=== PATIENT | male | born 1990 | race Caucasian/White ===

== ENCOUNTER 2023-11-23 07:51 | Outpatient (CLI) | payer OTHER, SELFPAY ==
--- NOTE | 2023-11-23 06:00 | DI.RAD_ITS ---
Exam(s) XR PAIN CLINIC LUMBAR SP 2V EXAM: XR PAIN CLINIC LUMBAR SP 2V CLINICAL HISTORY: DX: Lumbar Radiculopathy TECHNIQUE: 2D and realtime digital imaging was performed. Radiologist not present. CONTRAST MATERIAL: None. COMPARISON: No exams were available for comparison FINDINGS: Fluoroscopy was provided for pain management therapy. Please refer to procedure report or details. Radiation Exposure Index: Ka,r=8.44 mGy IMPRESSION: As above. RADIATION DOSE DELIVERED:
--- NOTE | 2023-11-23 07:36 | PDOC.PAIN_ITS ---
Date of service: 11/23/23 Time of Service: 08:30 Pain Managment Procedure Note Procedure Note Procedure Note: Lumbar Interlaminar Epidural Steroid Injection ? Location: L5-S1 ? Pre-procedure Diagnosis: M54.16- Radiculopathy, LUMBAR region ? Post-procedure Diagnosis:? The same as above ? Sedation:? ? None ? Medication: Depo-Medrol 80 mg, Omnipaque 1 mL ? Estimated blood loss:? less than 2 cc ? Surgeon:? Marco Cronin MD COMMENT: ? Procedure Detail:? The procedure and potential risks were explained to the patient and informed written consent was obtained. The patient was escorted to the procedure room and placed in the prone position. Pillows were utilized for proper positioning and comfort. Time out was performed in the procedure room with nursing staff confirming the patient's identity, procedure to be performed, allergies, and any blood thinning or anti-platelet medications.? The patient's neck and upper back was prepped with ChloraPrep and draped in a sterile fashion. Sterile technique was maintained throughout the procedure.? Sterile gloves were used, a face mask was worn, and new single dose vials of all medications were used with the top being swabbed with alcohol and given time to dry prior to withdrawal of medication. ETHYL CHLORIDE was used to anesthetize the skin.Using a 25-gauge 1.5 inch needle, 1% lidocaine was instilled into the superficial soft tissue overlying the targeted area to provide local anesthesia. With fluoroscopic guidance, a 17 -gauge Tuohy needle was advanced toward the interlaminar space of L5-S1. The needle was then advance through the ligamentum flavum and into the posterior epidural space using the loss of resistance technique. Correct needle placement was confirmed through review of the AP and contralateral oblique fluoroscopic views. A 19-gauge arrow catheter was threaded cephalad to the Left Following negative aspiration, one cc of Omnipaque 300 contrast was injected which confirmed good flow throughout the epidural space and no evidence of vasc ular flow or flow into adjacent compartments. Next, following negative aspiration, 1 cc's of normal saline and 80mg of Depo-Medrol was injected. The needle was gently removed. The patient tolerated the procedure well and was transported to the recovery area for observation and discharge instructions. Permanent images saved and recorded. Comment: I discussed with the patient and his other treatments and recommended he discuss getting some as needed meloxicam 15 mg daily and possible gabapentin 100 mg 3 times daily which could be titrated up to 300 mg 3 times daily at as tolerated and needed. If he continues to have chronic low back pain consider repeating radiofrequency ablations that he had at [facility]. Since it has been 7 years he will need new medial branch blocks go down that route. I also encouraged him to use the book treat your own back and do home exercise and core strengthening. Plan:? Follow up prn.
[2023-11-23 07:40] VITALS: BP 122/76; PULSE 104; RESP 18; TEMP 36.5; O2SAT 98
[2023-11-23 08:39] VITALS: O2SAT 97
[2023-11-23 08:40] VITALS: O2SAT 98
[2023-11-23 08:45] VITALS: O2SAT 98
[2023-11-23] MEDS: Omnipaque 240 MG/ML 50 ML BTL IJ (08:56)
[2023-11-23] MEDS: methylPREDNISolone ACETATE 40 MG/ML VIAL IJ (08:57)
[2023-11-23] MEDS: Epidural Tray 1 EACH MC (08:58)
== END 2023-11-23 07:52 | disposition home or self-care (01) ==
LOC: PC 07:52
PROVIDERS: Visit Provider Anesthesiology Pain Medicine
DX: M54.16 Radiculopathy, lumbar region (principal)
CPT/HCPCS: 00123; 62323; 72100; J1010; Q9967

== ENCOUNTER 2023-12-23 01:06 | Outpatient (CLI) | payer OTHER, SELFPAY ==
--- OUTSIDE RECORDS SUMMARY | 2023-12-23 01:09 | XMS_ITS | Encounter Summary ---
Author Organization [facility] Address [address] [place] [address] Care Team Providers Care Spring Coiler Name Role Phone Asif Cabrera MD Primary Care Provider [phone] Reason for Visit * Reason Onset Date Comments Results 02/03/2018 Encounter Details Date Type Department Care Team (Late st Contact Info) Description 02/03/2018 Telephone [facility] Interventional Pain [address] [place] [address] Greg Scott, RN Results Social History Tobacco Use Types Packs/Day Years Used Date Smoking Tobacco: Never Smokeless Tobacco: Never Alcohol Use Standard Drinks/Week Comments No 0 (1 standard drink = 0.6 oz pur e alcohol) Sex and Gender Information Value Date Recorded Sex Assigned at Not on file Gender Identity Not on file Sexual Orientation Not on file documented as of this encounter Functional Status Functional Status Response Date of Assess ment Because of a physical, menta l, or emotional condition, does this person have difficulty doing errands alone such as visiting a doctor's office or shopping? No 08/01/2017 Cognitive Status Response Date of Assessm ent Because of a physical, menta l, or emotional condition, does this person have serious difficulty concentrating, remembering, or making decisions? No 08/01/2017 documented as of this encounter Miscellaneous Notes * Telephone Encounter - Gudelia Brady - 02/07/2018 1526 EST 1st call. LMOM. * Telephone Encounter - Tanisha Vance - 02/07/2018 1455 EST Please schedule patient for two LRFA with Dr Spann/fellow. No authorization is required. Call Ref # [id number] * Telephone Encounter - Gudelia Brady - 02/06/2018 1040 EST Does this need a prior authorization? * Telephone Encounter - Greg Scott RN - 02/03/2018 0924 EST RN spoke with pt and received RFA pain relief numbers. Refer to pt flowsheet. Patient states that he was getting 85% + relief on his Left side post RFA procedure completed 08/01/2017. He says that it is probably starting to wear off at this time. When asked about his cancellation of apopointment that was scheduled in August, patient replied I had the other side set up to goand had to cancel, but I wish I would have called to re-schedule that side - I'm sure that would have been even better. I assured patient I would post this in formation in his chart and would send request to our scheduling department, who would be calling in the near future. Patient stated that he would like to get the other side done BREANA, ad talk to the doctor about having the left side done again. Injection History: 08/01/2017 - RFA L4, L5, ALA on Left 04/01/2017 - LMBB L4, L5, ALA BiLateral 02/04/2017 - LMBB L4, L5, ALA BiLateral 07/01/2016 - Therapeutic lumbar facet L4-L5, L5-ALA BiLateral 03/10/2016 - Therapeutic lumbar facet L4-L5, L5-ALA BiLateral 09/11/2012 - Trigger Point Injections, left paraspinal muscle documented in this encounter Plan of Treatment Not on file documented as of this encounter Visit Diagnoses Not on filedocumented in this encounter Care Teams Spring Coiler Relationship Specialty Start Date End Date Asif Cabrera MD [address] [place] [address] PCP - General 03/15/16 documented as of this encounter
--- OUTSIDE RECORDS SUMMARY | 2023-12-23 01:09 | XMS_ITS | Referral Summary ---
Author Organization [facility] Address [address] [place] [address] Care Team Providers Care Kindergarten Instructional Assistant Name Role Phone Asif Cabrera MD Primary Care Provider [phone] Allergies No known active allergies Medications Medication Sig Dispensed Refills Start Date End Date Status cyclobenzaprine (FLEXERIL) 10 mg tablet Take 10 mg by mouth as needed for Muscle Spasms. Reported on 07/01/2016 Active ibuprofen (MOTRIN) 800 mg tablet Take 800 mg by mouth daily as needed for Pain. Reported on 07/01/2016 Active fluticasone (FLONASE) 50 mcg/actuation nasal spray Instill 100 mcg into both nostrils as needed. Reported on 03/10/2016 Active Active Problems Patient Care Coordination No te Formatting of this note migh t be different from the original. Patient has given permission for the [facility] to verbally discuss the following information with Maryellen Esparza who has the following relationship to the patient: Spouse/Partner: Scheduling/Appt/Billing/Payment Information (does not include clinical information unless specifically indicated with separate option) Medical Information including symptoms, diagnosis, medications, test results and treatment plan (does not include Mental Health unless specifically indicated with separate option) Mental Health (Behavioral,Psychiatric,Chemical Dependency) health information, including my symptoms, diagnosis, medications and treatment plan Permission remains in effect until the patient elects to revoke it. Permission remains in effect until the patient elects to revoke it. Problem Noted Date Diagnosed Date Low back pain radiating to left leg 01/02/2016 Social History Tobacco Use Types Packs/Day Years Used Date Smoking Tobacco: Never Smokeless Tobacco: Never Alcohol Use Standard Drinks/Week Comments No 0 (1 standard drink = 0.6 oz pur e alcohol) Interpersonal Safety Answer Date Record ed Physically Hurt Never 10/29/2019 Verbally Threaten Not on file 10/29/2019 Sex and Gender Information Value Date Recorded Sex Assigned at Not on file Gender Identity Not on file Sexual Orientation Not on file Last Filed Vital Signs Vital Sign Reading Time Taken Comments Blood Pressure 137/78 09/22/2018 1430 EDT Pulse 77 09/22/2018 1430 EDT Temperature 36.5 ??C (97.7 ??F) 09/22/2018 1331 EDT Respiratory Rate 16 04/01/2017 1434 EST Oxygen Saturation - - Inhaled Oxygen Concentration - - Weight 86.2 kg (190 lb) 04/01/2017 1354 EST Height 167.6 cm (5' 6) 04/01/2017 1354 EST Body Mass Index 30.67 04/01/2017 1354 EST Functional Status Functional Status Response Date of [...] concentrating, remembering, or making decisions? No 08/01/2017 Plan of Treatment Not on file Care Teams Kindergarten Instructional Assistant Relationship Specialty Start Date End Date Asif Cabrera MD [address] [place] [address] PCP - General 03/15/16
--- OUTSIDE RECORDS SUMMARY | 2023-12-23 01:09 | XMS_ITS | Encounter Summary ---
Author Organization [facility] Address [address] [place] [address] Care Team Providers Care Governor Assembler Name Role Phone Asif Cabrera MD Primary Care Provider [phone] Reason for Visit * Reason Onset Date Comments Injections 04/05/2016 Encounter Details Date Type Department Care Team (Late st Contact Info) Description 04/05/2016 Telephone [facility] Sp[facility] - [address] [place] [address] Yossi Wakefield PA-C [address] [facility] [phone] Injections Social History Tobacco Use Types Packs/Day Years Used Date Smoking Tobacco: Never Sex and Gender Information Value Date Recorded Sex Assigned at Not on file Gender Identity Not on file Sexual Orientation Not on file documented as of this encounter Functional Status Functional Status Response Date of Assess ment Because of a physical, menta l, or emotional condition, does this person have difficulty doing errands alone such as visiting a doctor's office or shopping? No 03/10/2016 Cognitive Status Response Date of Assessm ent Because of a physical, menta l, or emotional condition, does this person have serious difficulty concentrating, remembering, or making decisions? No 03/10/2016 documented as of this encounter Miscellaneous Notes * Telephone Encounter - Olesya Mello - 04/05/2016 6031 EST Patient called and stated he got great relief from the injection. He doesn't feel pain down his left leg anymore. Overall he feels he got good relief. He will reach out if he needs anything further. documented in this encounter Plan of Treatment Not on file documented as of this encounter Visit Diagnoses Not on filedocumented in this encounter Care Teams Governor Assembler Relationship Specialty Start Date End Date Asif Cabrera MD [address] [place] [address] PCP - General 03/15/16 documented as of this encounter
--- OUTSIDE RECORDS SUMMARY | 2023-12-23 01:09 | XMS_ITS | Encounter Summary ---
Author Organization [facility] Address [address] [place] [address] Care Team Providers Care Administration Specialist Name Role Phone Rere Shah SECURITY TEST ENGINEER Primary Care Provider + Reason for Visit * Reason Comments Back Pain lower back pain, wor se on left * Consult (Routine/Next Available) - Specialty Report Received Specialty Diagnoses / Procedures Referred By Zenon balderas Referred To Contact Pain Medicine Diagnoses Low back pain radiating to left leg Yossi Wakefield PA-C [address] [facility] [place] [address] [facility] [address] [place] [address] Referral ID Status Reason Start Date Expiration Date Visits Requested Visits Authorized [id number] Specialty Report Received Specialty Services Required 01/02/2016 1 1 Encounter Details Date Type Department Care Team (Latest Contact Info) Description 03/10/2016 10:30 EST Office Visit [facility] Interventional Pain [address] [place] [address] [place] [address] [place] [address] Ned Spann MD [address] [facility] [address] [place] [address] Spondylosis of lumbosacral region without myelopathy or radiculopathy (Primary Dx) Discharge Disposition: Auto Discharge Social History Tobacco Use Types Packs/Day Years Used Date Smoking Tobacco: Never Sex and Gender Information Value Date Recorded Sex Assigned at Not on file Gender Identity Not on file Sexual Orientation Not on file documented as of this encounter Last Filed Vital Signs Vital Sign Reading Time Taken Comments Blood Pressure 117/90 03/10/2016 1117 EST Pulse 82 03/10/2016 1117 EST Temperature 36.1 ??C (96.9 ??F) 03/10/2016 1033 EST Respiratory Rate - - Oxygen Saturation - - Inhaled Oxygen Concentration - - Weight 86.2 kg (190 lb) 03/10/2016 1033 EST pt a pproximation Height 167.6 cm (5' 6) 03/10/2016 1033 EST Body Mass Index 30.67 03/10/2016 1033 EST documented in this encounter Functional Status Functional Status Response [...] No 03/10/2016 documented as of this encounter Discharge Diagnoses Diagnosis M47.817 Spondylosis without myelopathy or radiculopathy, lumbosacral region-M47.817[ICD-10-CM] documented in this encounter Patient Instructions * Patient Instructions* Megan Mckeon RN - 03/10/2016 10:30 EST [facility] [address] [address] Patient Instructions You have had your left lumbosacral Facet Steroid Injection. The purpose of this procedure has been to place medication which may help relieve your pain. Steroid may be used to decrease the swelling and nerve irritation which may be causing your pain. The following information should help you over the next few days regarding what you may expect. ??? Please take it easy for the rest of today. ??? DO NOT drive a car for the remainder of the day. ??? If you feel sore where the needle(s) entered for the block or develop a flare-up of pain over the next few days, please use ice on the area. You may leave the ice on for up to 20 minutes at a time. Do not use heat, as this may cause swelling. ??? As long as your primary doctor has indicated no restrictions, you may take a mild pain medicine, such as acetaminophen (Tylenol), ibuprofen (Advil, Nuprin, Motrin IB, etc.) or aspirin, if needed. ??? The steroid injection usually takes a few days to become effective. On average, you may notice some relief in 3 -5 days. However, it may take up to 10 - 14 days to know whether the injection was helpful. ??? If the block causes numbness/weakness, it should wear off within a few hours. ??? If the area that the needle(s) were inserted becomes hot, red, swollen, or increasingly tender,or if you develop a fever (100.5 or greater) or chills along with these symptoms, please call our office immediately. ??? If you develop increasingly severe back pain, continued numbness or weakness of the legs or changes in your bladder or bowel functions, please call our office immediately. Instructions for follow-up If you have any questions about your block, please call Patient Education Topic: Method: Handout and Verbal Taught to: Patient Barriers: None Outcomes: independent and verbalized understanding Signature: Megan Mcgregor RN documented in this encounter Discharge Disposition Disposition Code Departure Means Destination Auto Discharge documented in this encounter Progress Notes * Aparna Newell - 03/10/2016 1030 EST [facility] Rooming Note Does patient have a Hand Nailer? Yes Is patient NPO? (Solids since midnight & liquids for 4 hrs) NA Blood Thinners: Is patient on Blood Thinners? No If yes, taking? If stopped, who authorized stopping? Related comments: Infections: Any recent infections, fever of illnesses? No If on antibiotics, is it 7-10 days past the date of completion of antibiotics? No : (for females of child-bearing age) Is there a chance current ? NA Other: * Ned Spann - 03/10/2016 1030 EST Patient Name: Khris Fisher : 1990 Date of Service: 03/10/2016 Requesting physician: Yossi Wakefield Supervisor Chlorine Liquefaction: Drew Alvardao MD Chocolate Packer: Ned Spann Procedure: Therapeutic lumbar facet joint injections at L4L5, L5S1 Interval History: Patient presents at the request of Yossi Wakefield for evaluation and treatment recommendations of his low back pain. Details of the current complaint are thoroughly described in the consultation notes from Yossi Wakefield's last encounter including pain onset, location, course, workup, therapeutic attempts, and associated functional limitations. The patient reports no recent changes inthe character, quality, or distribution of the pain. There are no recent onset of new associated symptoms such as changes in strength, sensation, or bladder control. All previous medical records including current medications, anticoagulation status, any signs of current infection, and new imaging were reviewed. Injection History: 03/10/2016: lumbar facet joint injection at Left L4L5, L5S1 Allergies: No Known Allergies Review of Systems: Negative for any fever, chills, nausea/vomiting, headaches, chest pain, palpitations, shortness of breath, bladder/bowel incontinence. No easy bruising, bleeding, anti-coagulation or known recent infections. Physical Exam: Vitals: Visit Vitals ??? BP 123/88 ??? Pulse 78 ??? Temp 36.1 ??C (96.9 ??F) (Tympanic) ??? Ht 167.6 cm (66) ??? Wt 86.2 kg (190 lb) Comment: pt approximation ??? BMI 30.67 kg/m2 General: Patient is alert and oriented, no acute distress Lungs: symmetric chest rise, no evidence of labored breathing Skin: clear, warm, dry and intact and no rashes, bruises or petechiae noted Musculoskeletal: Gait: patient ambulates independently with steady gait no obvious scoliosis or abnormal curvature of the spine Lumbar Spine: moderate tenderness elicited upon palpation, pain elicited upon facet loading Lower Extremity: strength 5/5 in all major muscle groups b/l Assessment: 1. Spondylosis of lumbosacral region without myelopathy or radiculopathy Plan: Mr. Khris Fisher is a 25 y.o. male that presents to the pain clinic to undergo lumbar facet injections in regards to his chronic back pain. All risks, benefits, and alternatives were thoroughly explained to Mr. Khris Fisher who verbally communicated understanding of the management plan. Proceed with therapeutic facet joint injections at bilateral L4-L5 and L5-S1 Follow up: with Mr. Wakefield from orthopedics Procedure: The patient gave informed written consent to proceed with this procedure following a detailed discussion of the risks and benefits associated with lumbar facet joint injection including but not limited to infection, bleeding, intrathecal injection, allergic reaction, further exacerbation of current symptoms, neurological injury, and lack of efficacy.. The patient was then placed in the prone position, the skin over the lumbosacral area was prepped with chlorhexadine, and the site was marked anddraped with sterile towels. Strict sterile technique was maintained throughout the procedure. A time out was performed with full staff present to identify the patient, verify the procedure being performed, and review allergies. Flouroscopy was used to identify the lumbar anatomy and align the facet joints. The skin and subcutaneous tissue over the bilateral L4-L5 and L5-S1 facet joints was anesthetized with 2% lidocaine. A 22 guage 3.5 inch spinal needle was inserted under fluoroscopic guidance using coaxial technique into each of the aforementioned facet joints. After negative aspiration, each joint was injected with 0.5 mls 0.5% Bupivacaine and 20 mg Depo-Medrol. There were no paresthesias during needle placement and aspiration was negative at all times. The patient tolerated the procedure well, there were no apparent complications, and he was discharged in stable condition. Written and verbal discharge instructions were reviewed with the patient prior to discharge. Ned Spann MD Attending attestation: I saw and examined the patient with the resident/fellow. I agree with the findings and plan of care documented in the resident's/fellow's note. I was present and participated during the entire procedure. Drew Alvarado MD documented in this encounter Plan of Treatment Not on file documented as of this encounter Visit Diagnoses Diagnosis Spondylosis of lumbosacral region without myelopathy or radiculopathy- Primary Lumbosacral spondylosis without myelopathy documented in this encounter Administered Medications Inactive Administered Medications - up to 3 most recent administrations Medication Order MAR Action Action Date Dose Rate Site bupivacaine (PF) (MARCAINE) 0.5 % (5 mg/mL) injection 5 mg 5 mg (1 mL), intra-articular, NOW X1, 1 dose, On Tue03/10/16 at 1130, Routine Given by Other 03/10/2016 11:12 EST 5 mg methylPREDNISolone ACETATE (DEPO-MEDROL) injection 40 mg 40 mg, intra-articular, NOW X1, 1 dose, On Tue03/10/16 at 1130, Routine Given by Other 03/10/2016 11:13 EST 40 mg documented in this encounter Care Teams Administration Specialist Relationship Specialty Start Date End Date Rere Shah FNP [address] [place] [address] PCP - General 10/08/15 03/14/16 documented as of this encounter
--- OUTSIDE RECORDS SUMMARY | 2023-12-23 01:09 | XMS_ITS | Encounter Summary ---
Author Organization [facility] Address [address] [place] [address] Care Team Providers Care Pulley Worker Name Role Phone Asif Cabrera MD Primary Care Provider [phone] Reason for Visit * Reason Comments Back Pain Encounter Details Date Type Department Care Team (Latest Contact Info) Description 07/01/2016 13:45 EDT Office Visit [facility] Interventional Pain [address] [place], [place] [id number] Unknown, Provider, [place] [address] [place] [address] Ned Spann MD [address] [place] [address] Spondylosis of lumbar region without myelopathy or radiculopathy (Primary Dx) Discharge Disposition: Auto Discharge Social History Tobacco Use Types Packs/Day Years Used Date Smoking Tobacco: Never Sex and Gender Information Value Date Recorded Sex Assigned at Not on file Gender Identity Not on file Sexual Orientation Not on file documented as of this encounter Last Filed Vital Signs Vital Sign Reading Time Taken Comments Blood Pressure 126/69 07/01/2016 1419 EDT Pulse 69 07/01/2016 1419 EDT Temperature 36.4 ??C (97.6 ??F) 07/01/2016 1343 EDT Respiratory Rate - - Oxygen Saturation - - Inhaled Oxygen Concentration - - Weight 83.9 kg (185 lb) 07/01/2016 1343 EDT per pt Height 167.6 cm (5' 6) 07/01/2016 1343 EDT per pt Body Mass Index 29.86 07/01/2016 1343 EDT documented in this encounter Functional Status Functional Status Response Date of Assess ment Because of a physical, menta l, or emotional condition, does this person have difficulty doing errands alone such as visiting a doctor's office or shopping? No 07/01/2016 Cognitive Status Response Date of Assessm ent Because of a physical, menta l, or emotional condition, does this person have serious difficulty concentrating, remembering, or making decisions? No 07/01/2016 documented as of this encounter Discharge Diagnoses Diagnosis M47.816 Spondylosis without myelopathy or radiculopathy, lumbar region-M47.816[ICD-10-CM] documented in this encounter Patient Instructions * Patient Instructions* Aparna Newell - 07/01/2016 13:45 EDT [facility] [address] [address] Patient Instructions You have had your bilateral lumbar Facet Steroid Injection. The purpose of this [...] immediately. ??? If you develop increasingly severe neck/back pain, continued numbness or weakness of the arms/legs or changes in your bladder or bowel functions, please call our office immediately. Instructions for follow-up If you have any questions about your block, please call Patient Education Topic: Method: Handout and Verbal Taught to: Patient Barriers: None Outcomes: independent and verbalized understanding Signature: Aparna Newell documented in this encounter Discharge Disposition Disposition Code Departure Means Destination Auto Discharge documented in this encounter Progress Notes * Vijaya Hull V - 07/01/2016 1343 EDT [facility] Rooming Note Does patient have a Pick Up Driver? Yes Is patient NPO? (Solids since midnight & liquids for 4 hrs) n/a Blood Thinners: Is patient on Blood Thinners? No If yes, taking? If stopped, who authorized stopping? Related comments: Infections: Any recent infections, fever of illnesses? No If on antibiotics, is it 7-10 days past the date of completion of antibiotics? : (for females of child-bearing age) Is there a chance current ? n/a Other: * Drew Alvarado - 07/01/2016 1347 EDT Patient Name: Khris Fisher : 1990 Date of Service: 07/01/2016 Requesting physician: Erik Wakefield Principal Database Developer: Drew Alvarado MD Procedure: Therapeutic lumbar facet joint injections at bilateral L4-L5, L5-S1 Interval History: Patient returns to clinic for repeat facet injections. Details of the current complaint are thoroughly described in the consultation notes from Yossi Wakefield's last encounter including pain onset, location, course, workup, therapeutic attempts, and associated functional limitations. Briefly,he has a long history of low back pain since age 17. The patient reports no recent changes in the character, quality, or distribution of the pain. There are no recent onset of new associated symptomssuch as changes in strength, sensation, or bladder control. All previous medical records including current medications, anticoagulation status, any signs of current infection, and new imaging were rev iewed. Injection History February 2016: lumbar facet joint injection at Left L4L5, L5S1 100% relief for over 3 weeks Allergies: No Known Allergies Review of Systems: Negative for any fever, chills, nausea/vomiting, headaches, chest pain, palpitations, shortness of breath, bladder/bowel incontinence. No easy bruising, bleeding, anti-coagulation or known recent infections. Physical Exam: Vitals: BP 132/86 (BP Cuff Location: Left arm, Patient Position: Sitting, BP Cuff Sizes: Adult, long) Pulse 63 Temp 36.4 ??C (97.6 ??F) (Tympanic) Ht 167.6 cm (66) Comment: per pt Wt 83.9 kg (185 lb) Comment: per pt BMI 29.86 kg/m2 General: Patient is alert and oriented, [...] muscle groups b/l Assessment: 1. Spondylosis of lumbar region without myelopathy or radiculopathy Plan: He had great relief with the last facet injections but did not last very long and felt the right sided was still painful. We will repeat therapeutic facet joint injections at bilateral L4-L5 and L5-S1. If good short term relief, but no long term care social worker relief, then he may be a candidate for radiofrequencyablation. Depending on his insurance, he may need medial branch blocks or the facets may be enough as diagnostic. If no relief at all, the follow up with Sarah Wakefield. Follow up: as needed. Procedure: The patient gave informed written consent [...] anesthetized with 2% lidocaine. A 22 guage 5 inch spinal needle was inserted under fluoroscopic guidance using coaxial technique into each of the aforementioned facet joints. After negative aspiration, each joint was injected with 0.5mls 0.5% Bupivacaine and 20 mg Depo-Medrol. There were no paresthesias during needle placement and aspiration was negative at all times. The patient tolerated the procedure well, there were no apparent complications, and he was discharged in stable condition. Written and verbal discharge instructions were reviewed with the patient prior to discharge. documented in this encounter Plan of Treatment Not on file documented as of this encounter Visit Diagnoses Diagnosis Spondylosis of lumbar region without myelopathy or radiculopathy- Primary Lumbosacral spondylosis without myelopathy documented in this encounter Administered Medications Inactive Administered Medications - up to 3 most recent administrations Medication Order MAR Action Action Date Dose Rate Site bupivacaine (PF) (MARCAINE) 0.5 % (5 mg/mL) injection 15 mg 15 mg (3 mL), intra-articular, NOW X1, 1 dose, On Debra 07/01/16 at 1530, Routine Given by Other 07/01/2016 15:06 EDT 15 mg methylPREDNISolone ACETATE (DEPO-MEDROL) injection 80 mg 80 mg, intra-articular, NOW X1, 1 dose, On Debra 07/01/16 at 1530, Routine Given by Other 07/01/2016 15:07 EDT 80 mg documented in this encounter Care Teams Pulley Worker Relationship Specialty Start Date End Date Asif Cabrera MD [address] [place] [address] PCP - General 03/15/16 documented as of this encounter
--- OUTSIDE RECORDS SUMMARY | 2023-12-23 01:09 | XMS_ITS | Encounter Summary ---
Author Organization [facility] Address [address] [place] [address] Care Team Providers Care French Drawer Name Role Phone Rere Shah Primary Care Provider + Asif Cabrera MD Primary Care Provider [phone] Reason for Visit * Reason Onset Date Comments Results 03/11/2016 Encounter Details Date Type Department Care Team (Late st Contact Info) Description 03/11/2016 Telephone [facility] Interventional Pain [address] [place] [address] Ned Spann MD [address] [facility] [address] [place] [address] Results Social History Tobacco Use Types Packs/Day [...] encounter Miscellaneous Notes * Telephone Encounter - Sheron Mendez RN - 03/11/2016 1422 EST Post Bilateral Lumbar Facet 3 hours at 50% relief. * Telephone Encounter - Tanisha Vance W - 03/11/2016 1342 EST Procedure end time: 1130am Pain relief start time Returned to baseline pain Hours of relief 3 hours Percentage of relief 0-100 (0 = no relief, 100 = total relief) ___50% documented in this encounter Plan of Treatment Not on file documented as of this encounter Visit Diagnoses Not on filedocumented in this encounter Care Teams French Drawer Relationship Specialty Start Date End Date Rere Shah FNP [address] [place], [place] [id number] PCP - General 10/08/15 03/14/16 Asif Cabrera MD [address] [place], [place] [id number] PCP - General 03/15/16 documented as of this encounter
--- OUTSIDE RECORDS SUMMARY | 2023-12-23 01:09 | XMS_ITS | Encounter Summary ---
Author Organization [facility] Address [address] [place] [address] Care Team Providers Care Industrial Sewer Name Role Phone Asif Cabrera MD Primary Care Provider [phone] Reason for Visit * Reason Onset Date Comments Prior Auth, Other (i.e. radiology, etc.) 019 Encounter Details Date Type Department Care Team (Late st Contact Info) Description 09/22/2018 Telephone [facility] Interventional Pain [address] [facility] [place] [address] Ned Spann MD [address] [place] [address] Prior Auth, Other (i.e. radiology, etc.) Social History Tobacco Use Types Packs/Day Years [...] encounter Miscellaneous Notes * Telephone Encounter - Megan Steve - 10/23/2018 1216 EDT Set him up for 12/07/2018 @ 9:30 And 12/21/2018 @ 9:30 LMOM for him to please call us back to confirm these apts or to have them rescheduled if those dates were not going to work for him. * Telephone Encounter - Tanisha Vance - 10/17/2018 1207 EDT Please schedule patient for Michaelle LRFA with Dr Spann. [place] fax no authorization is needed. * Telephone Encounter - Celina Oglesby - 10/16/2018 0926 EDT Faxed PA request to [phone] * Telephone Encounter - Tanisha Vance - 10/11/2018 1558 EDT [place]# [id number] Michaelle LRFA Cpt code [phone] Ned Spann Faxed 10/11/18 4:00pm * Telephone Encounter - Celina Oglesby - 09/25/2018 0914 EDT Waiting for notes * Telephone Encounter - Celina Oglesby - 09/22/2018 1448 EDT Needs [place] for bilateral RFA in a 1 hour appointment. documented in this encounter Plan of Treatment Not on file documented as of this encounter Visit Diagnoses Not on filedocumented in this encounter Care Teams Industrial Sewer Relationship Specialty Start Date End Date Asif Cabrera MD [address] [place] [address] PCP - General 03/15/16 documented as of this encounter
--- OUTSIDE RECORDS SUMMARY | 2023-12-23 01:09 | XMS_ITS | Encounter Summary ---
Author Organization [facility] Address [address] [place] [address] Care Team Providers Care Director Hydrogen Storage Engineering Name Role Phone Asif Cabrera MD Primary Care Provider [phone] Reason for Visit * Reason Onset Date Comments Results 04/04/2017 Encounter Details Date Type Department Care Team (Late st Contact Info) Description 04/04/2017 Telephone [facility] Interventional Pain [address] [place] [address] Ned Spann MD [address] [facility] [address] [place] [address] Results Social History Tobacco Use Types Packs/Day Years Used Date Smoking Tobacco: Never Smokeless Tobacco: Never Sex and Gender Information Value [...] visiting a doctor's office or shopping? No 04/01/2017 Cognitive Status Response Date of Assessm ent Because of a physical, menta l, or emotional condition, does this person have serious difficulty concentrating, remembering, or making decisions? No 04/01/2017 documented as of this encounter Miscellaneous Notes * Telephone Encounter - Gudelia Brady - 06/15/2017 1101 EDT 08/01/17 at 8:15 08/26/17 at 12:45 * Telephone Encounter - Tanisha Vance - 04/18/2017 1005 EST [place] doesn't need authorization for Eduardo LRFA, Reference # [id number] Spann * Telephone Encounter - Gudelia Brady - 04/18/2017 0757 EST Patient already had 2 LMBB. Awaiting PA for LRFA * Telephone Encounter - Tanisha Vance - 04/12/2017 1033 EST Called [place] no PA needed for 2nd MBB. Reference [id number] Please schedule. * Telephone Encounter - Brenna Smith RN - 04/05/2017 0924 EST Injection History: 04/01/2017: medial branch blocks at L3, L4, Sa b/l Had facet injections with limited relief: 100% X 5 hours ?? Post-MBB Pain Relief: Hours of relief: 5 hours Percentage relief: 100% Type of next appointment scheduled: Forward to [facility] PA for 2nd MBB vs RFA pending PA * Telephone Encounter - Danisha Trent - 04/04/2017 1146 EST Injection on 04/01/17 100% relief for 5 hours. documented in this encounter Plan of Treatment Not on file documented as of this encounter Visit Diagnoses Not on filedocumented in this encounter Care Teams Director Hydrogen Storage Engineering Relationship Specialty Start Date End Date Asif Cabrera MD [address] [place] [address] PCP - General 03/15/16 documented as of this encounter
--- OUTSIDE RECORDS SUMMARY | 2023-12-23 01:09 | XMS_ITS | Encounter Summary ---
Author Organization [facility] Address [address] [place] [address] Care Team Providers Care Floral Clerk Name Role Phone Asif Cabrera MD Primary Care Provider [phone] Reason for Visit * Reason Onset Date Comments Pain 04/16/2016 Appointment Related 04/16/2016 Encounter Details Date Type Department Care Team (Late st Contact Info) Description 04/16/2016 Telephone [facility] Interventional Pain [address] [place] [address] Ned Spann MD [address] [place] [address] Pain; Appointment Related Social History Tobacco Use Types Packs/Day Years [...] encounter Miscellaneous Notes * Telephone Encounter - Tanisha Vance - 04/20/2016 1345 EST appt 07/01/16 * Telephone Encounter - Hernandez Wilcox - 04/20/2016 1238 EST No prior auth needed for facet inj please schedule patient thank you * Telephone Encounter - Lissy Oliveira RN - 04/16/2016 1530 EST RN returned call regarding questions on returning pain in back after lifting. No answer LM Pt was seen on 03/10/16 Procedure: Therapeutic lumbar facet joint injections at L4L5, L5S1 Plan per Dr Spann f/u with Yossi Wakefield Pt called back and claims he had 3-4 weeks of 100% pain relief,but recently after lifting developedsame pain back to lower left back which is non radiating. Pt would like to schedule another steroidinjection. Forward info to [facility] * Telephone Encounter - Gudelia Brady - 04/16/2016 1316 EST Patient had last injection on 03/10/16. Patient states he got 100% relief for three weeks. Patient states the injection is slowly wearing off and lifted something and is in pain again. Please call. documented in this encounter Plan of Treatment Not on file documented as of this encounter Visit Diagnoses Not on filedocumented in this encounter Care Teams Floral Clerk Relationship Specialty Start Date End Date Asif Cabrera MD [address] [place] [id number] PCP - General 03/15/16 documented as of this encounter
--- OUTSIDE RECORDS SUMMARY | 2023-12-23 01:09 | XMS_ITS | Encounter Summary ---
Author Organization [facility] Address [address] [place] [address] Care Team Providers Care Anesthetist Name Role Phone Asif Cabrera MD Primary Care Provider [phone] Reason for Visit * Reason Onset Date Comments Results 10/05/2018 Encounter Details Date Type Department Care Team (Late st Contact Info) Description 10/05/[address] [facility] Interventional Pain [address] [place] [address] Melania Colón, [place] Results Social History Tobacco Use Types Packs/Day [...] encounter Miscellaneous Notes * Telephone Encounter - Beckie Colón RN - 10/05/2018 1323 EDT Pt in for left side RFA. Per chart note, he has 80% relief fron the right side RFA completed 04/21/18. documented in this encounter Plan of Treatment Not on file documented as of this encounter Visit Diagnoses Not on filedocumented in this encounter Care Teams Anesthetist Relationship Specialty Start Date End Date Asif Cabrera MD [address] [place] [address] PCP - General 03/15/16 documented as of this encounter
--- OUTSIDE RECORDS SUMMARY | 2023-12-23 01:09 | XMS_ITS | Encounter Summary ---
Author Organization [facility] Address [address] [place] [address] Care Team Providers Care Warehouse General Laborer Name Role Phone Rere Shah MANAGER MED SURG Primary Care Provider + Reason for Referral * Radiology Services (Routine) - Closed Specialty Diagnoses / Procedures Referred By Zenon balderas Referred To Contact Diagnoses Low back pain, unspecified back pain laterality, unspecified chronicity, with sciatica presence unspecified Procedures L SPINE 4 OR MORE VIEWS Yossi Wakefield PA-C [address] [place] [id number] Referral ID Status Reason Start Date Expiration Date Visits Re quested Visits Authorized [id number] Closed 12/02/2015 1 1 Encounter Details Date Type Department Care Team (Late st Contact Info) Description 11/27/2015 Orders Only [facility] Spine Program - [address] [address] Yossi Wakefield PA-C [address] [place] [phone] Low back pain, unspecified back pain laterality, unspecified chronicity, with sciatica presence unspecified (Primary Dx) Social History Tobacco Use Types Packs/Day Years Used Date Smoking Tobacco: Never Assessed Sex and Gender Information Value Date Recorded Sex Assigned at Not on file Gender Identity Not on file Sexual Orientation Not on file documented as of this encounter Plan of Treatment Not on file documented as of this encounter Procedures Procedure Name Priority Date/Time Associated Diagnosis Comments L SPINE 4 OR MORE VIEWS Routine 12/12/2015 14:07 EDT Low back pain, unspecified back pain laterality, unspecified chronicity, with sciatica presence unspecified documented in this encounter Results * L SPINE 4 OR MORE VIEWS (12/12/2015 14:07 EDT) Anatomical Region Laterality Modality Other 12/12/2015 14:0 7 EDT 12/13/2015 20:52 EDT Narrative 12/13/2015 20:52 EDT L SPINE 4 OR MORE VIEWS ??12/12/2015 2:07 PM Clinical History/Comments: M54.5-Low back pain-ICD-10; LOWER BACK PAIN Comparison: Lumbar spine MRI from [facility] on June 06, 2012. Technique: AP and lateral flexion, neutral and extension views of the lumbar spine were obtained. Findings: Significant scoliotic curvature is not appreciated. No tania or retrolisthesis is identified. Vertebral body heights are preserved. Disc space heights are relatively well-maintained. Marked facet osteoarthropathy is not appreciated. Minimal enthesopathy is noted at the iliac crests bilaterally. Procedure Note Vicenta Rizzo MD - 12/13/2015 L SPINE 4 OR MORE VIEWS 12/12/2015 2:07 PM Clinical History/Comments: M54.5-Low back pain-ICD-10; LOWER BACK PAIN Comparison: Lumbar spine MRI from [facility] on June 06, 2012. Technique: AP and lateral flexion, neutral and extension views of the lumbar spine were obtained. Findings: Significant scoliotic curvature is not appreciated. No tania or retrolisthesis is identified. Vertebral body heights are preserved. Disc space heights are relatively well-maintained. Marked facet osteoarthropathy is not appreciated. Minimal enthesopathy is noted at the iliac crests bilaterally. [facility]i [facility] ORDERABLES documented in this encounter Visit Diagnoses Diagnosis Low back pain, unspecified back pain laterality, unspecified chronicity, with sciatica presence unspecified- Primary documented in this encounter Care Teams Warehouse General Laborer Relationship Specialty Start Date End Date Rere Shah FNP [address] [place] [address] PCP - General 10/08/15 03/14/16 documented as of this encounter
--- OUTSIDE RECORDS SUMMARY | 2023-12-23 01:09 | XMS_ITS | Encounter Summary ---
Author Organization [facility] Address [address] [place] [address] Care Team Providers Care Property Clerk Name Role Phone Asif Cabrera MD Primary Care Provider [phone] Reason for Visit * Reason Comments Back Pain Encounter Details Date Type Department Care Team (Latest Contact Info) Description 09/22/2018 13:30 EDT Office Visit [facility] Interventional Pain [address] [place] [address] Ned Spann MD [address] [facility] [address] [place] [address] Spondylosis of lumbar region without myelopathy or [...] (97.7 ??F) 09/22/2018 1331 EDT Respiratory Rate - - Oxygen Saturation - - Inhaled Oxygen Concentration - - Weight - - Height - - Body Mass Index - - documented in this encounter Functional Status Functional [...] No 08/01/2017 documented as of this encounter Discharge Diagnoses Diagnosis M47.816 Spondylosis without myelopathy or radiculopathy, lumbar region-M47.816[ICD-10-CM] documented in this encounter Patient Instructions * Patient Instructions* Lyn Vazquez RN - 09/22/2018 13:30 EDT [facility] [address] [address] Patient Instructions You have had your Radiofrequency Ablation. The purpose of this procedure is to relieve or reduce your pain. The following information should help you over the next few days/weeks regarding what you may expect. ??? Please take it easy for the rest of today. ??? DO NOT drive a car for the remainder of the day. ??? If you feel sore where the needle(s) entered for the block, please use ice on the area. You mayleave the ice on for up to 20 minutes at a time. Do not use heat, as this can increase swelling. ??? As long as your primary doctor has indicated no restrictions, you may take a mild pain medicine, such as acetaminophen (Tylenol), ibuprofen (Advil, Nuprin, Motrin IB, etc.) or aspirin, if needed. ??? Please keep track of how your pain feels over the next few weeks. On average patients start to notice relief at 3-4 weeks but this can take up to 8-10 weeks to know whether this procedure was helpful. ??? If the block causes numbness (asleep) feeling or weakness, that will wear off within several hours. ??? If the area that the needle(s) were inserted becomes hot, red, swollen, or increasingly tender,or if you develop a fever (100.5 or greater) or chills along with these symptoms, please call our office immediately. ??? If you develop increasingly severe back pain, continued numbness or weakness of the legs or changes in your bladder or bowel functions, please call our office at once. Instructions for follow-up: One of our nurses will be phoning you at 8 weeks, 6 months and 1 year to see if you are getting relief. We document this in your medical record. In order to have this procedure repeated and approved by your insurance, we have to supply them with your results (% & months of relief). If at any time this wears off, please call us. We will take you off the phone call schedule and determine with you if this procedure is worth repeating at any time after 6 months or if you should come in for a follow up to discuss options. If you have any questions about your block, please call Patient Education Topic: Method: Handout and Verbal Taught to: Patient Barriers: None Outcomes: independent and verbalized understanding LYN VAZQUEZ RN documented in this encounter Discharge Disposition Disposition Code Departure Means Destination Auto Discharge documented in this encounter Progress Notes * Vijaya Hull V - 09/22/2018 1330 EDT [facility] Rooming Note Does patient have a Drupal Developer? Yes Is patient NPO? (Solids since midnight & liquids for 4 hrs) N/a Blood Thinners: Is patient on Blood Thinners? No If yes, taking? If stopped, who authorized stopping? Related comments: Infections: Any recent infections, fever of illnesses? No If on antibiotics, is it 7-10 days past the date of completion of antibiotics? : (for females of child-bearing age) Is there a chance current ? Do you have any type of implanted device? No Other: * Ned Spann - 09/22/2018 1330 EDT Patient Name: Khris Fisher : 1990 Date of Service: 09/22/2018 Requesting physician: Asif Cabrera via Erik Wakefield On Call: Ned Spann MD Women'S Soccer Coach: None Procedure: Therapeutic lumbar radiofrequency ablation at L4, L5, sa on left Interval History: Patient returns at the request of Asif Cabrera for continued evaluation and treatment recommendations of the patient's pain. Khris Fisher primarily localizes the pain at his low back radiating to buttocks and thighs. He describes the pain as sharp in character. Patient currently denies any progressive weakness, unexplainedfever, trauma or unexplained weight loss. Patient has undergone 2 sets of diagnostic injections that offered 100% pain relief X5 hours. Details of the current complaint are thoroughly described in the consultation notes from Erik Wakefield' encounters including pain onset, location, course, workup, therapeutic attempts, and associated functional limitations. The patient reports no recent changesin the character, quality, or distribution of the pain. There are no recent onset of new associatedsymptoms such as changes in strength, sensation, or bladder control. All previous medical records including current medications, anticoagulation status, any signs of current infection, and new imaging were reviewed. Injection History: 04/15: right sided RFA: 80% relief ongoing 08/12: left sided RFA: 80% relief for 6 months Had 2 sets of lumbar facet injections before moving on to diagnostic mbb and now RFA Allergies: No Known Allergies Review of Systems: Negative for any fever, chills, nausea/vomiting, headaches, chest pain, palpitations, shortness of breath, bladder/bowel incontinence. No easy bruising, bleeding, anti-coagulation or known recent infections. Physical Exam: Vitals: BP 127/76 Pulse 70 Temp 36.5 ??C (97.7 ??F) (Tympanic) General: Patient is alert and oriented, no acute distress Lungs: symmetric chest rise, no evidence of labored breathing Skin: clear, warm, dry and intact and no rashes, bruises or petechiae noted Musculoskeletal: Gait: patient ambulates independently, steady gait no obvious scoliosis or abnormal curvature of the spine Lumbar Spine: tenderness elicited upon palpation, pain elicited upon facet loading Lower Extremity: strength 5/5 in all armando muscle groups b/l Assessment: 1. Spondylosis of lumbar region without myelopathy or radiculopathy Plan: Mr. Khris Fisher is a 28 y.o. male that presents to the pain clinic to undergo lumbar radiofrequency ablation in regards to his chronic back pain. All risks, benefits, and alternatives were thoroughly explained to Mr. Khris Fisher who verbally communicated understanding of the management plan. Proceed with radiofrequency ablation at L4, L5, Sa on left Follow up: I expect this will help again for about 6 months. I want him to be scheduled in 6 months to do bothsides at same time. Procedure: The patient gave informed written consent to proceed with this procedure following a detailed discussion of the risks and benefits associated with lumbar radiofrequency ablation including but not limited to infection, bleeding, intrathecal injection, allergic reaction, further exacerbation of current symptoms, neurological injury, and lack of efficacy. The patient was then placed in prone position, the skin over the lumbosacral area was prepped with chlorhexadine, and the site was marked and draped with sterile towels. Strict sterile technique was maintained throughout the procedure. A timeout was performed with full staff present to identify the patient, verify the procedure being performed, and review allergies Flouroscopy was used to identify the appropriate lumbar anatomy. The skin and subcutaneous tissue were anesthetized with 2% lidocaine. A 10 cm RFA cannula with 10 mm active tip was inserted under fluoroscopic guidance to contact the junction of the superior articulating process and transverse process at the aforementioned levels. Once periostium was contacted, the RFA cannula were advance slightly anterior and cephalad to place the active tips parallel to the targeted nerves. Final needle position was confirmed with biplanar fluoroscopy. Sensory testing was performed at 50 Hz at each location. Motor testing was performed using 2 Hz and was negative for lower extremity muscle contraction at all levels up to 2.5 volts. The testing results are documented in the table below. After proper sensory and motor testing was completed, each site was anesthetized with one ml lidocaine 2%. Thermal radiofrequency ablation was then performed at 80 degrees Celsius for 150 seconds. After treatment was completed, 1 ml of 0.5% bupivacaine was injected at each site and the needles were withdrawn. 3 RFA cannula were used for this procedure. There was no paresthesia during needle placement and aspiration was negative at all times. The patient tolerated the procedure well and there were no apparent complications. Written and verbal discharge instructions were reviewed with the patient prior to discharge. RFA parameters: Please see additional documentation in this encounter. Ned Spann MD * Lyn Vazquez RN - 09/22/2018 1088 EDT Thermal RFA parameters: Temp (Celcius): 80 Time (Seconds): 150 xxxxxxxxxxxxxxxxxx xxxxxxxxxxxxxxxxxxxx xxxxxxxxxxxxxxxxxxxx Location Sensory: 50 Hz Motor: 2 Hz Lt Sacral Ala 0.82 Negative xxxxxxxxxxxxxxxxxxx xxxxxxxxxxxxxxxxxxxxx xxxxxxxxxxxxxxxxxxxxx Lt L5 0.42 Negative xxxxxxxxxxxxxxxxxxx xxxxxxxxxxxxxxxxxxxxx xxxxxxxxxxxxxxxxxxxxx Lt L4 0.35 Negative xxxxxxxxxxxxxxxxxxx xxxxxxxxxxxxxxxxxxxxx xxxxxxxxxxxxxxxxxxxxx documented in this encounter Plan of Treatment [...] (PF) (MARCAINE) 0.5 % (5 mg/mL) injection 25 mg 25 mg (5 mL), cruzito-neural, NOW X1, 1 dose, On Tue09/22/18 at 1445, Routine Given by Other 09/22/2018 14:25 EDT 25 mg documented in this encounter Orders Medications Ordered That Angel ht Not Have Been Administered Count Last Ordered Date First Ordered Date bupivacaine (PF) (MARCAINE) 0.5 % (5 mg/mL) injection 25 mg 1 09/22/2018 documented in this encounter Care Teams Property Clerk Relationship Specialty Start Date End Date Asif Cabrera MD [address] [place] [address] PCP - General 03/15/16 documented as of this encounter
--- OUTSIDE RECORDS SUMMARY | 2023-12-23 01:09 | XMS_ITS | Encounter Summary ---
Author Organization [facility] Address [address] [place] [address] Care Team Providers Care Fashion Consultant Sales Name Role Phone Rere Shah Primary Care Provider + Encounter Details Date Type Department Care Team (Late st Contact Info) Description 11/27/2015 Results Only Imaging [facility] - [address] [place], [place] [id number] Yossi Wakefield PA-C [address] [facility] [place] [address] Social History Tobacco Use Types Packs/Day Years Used Date Smoking Tobacco: Never Assessed Sex and Gender Information Value Date Recorded Sex Assigned at Not on file Gender Identity Not on file Sexual Orientation Not on file documented as of this encounter Plan of Treatment Pending Results Name Type Priority Associated Diagnoses Date /Time OUTSIDE IMAGES - MR NEURO Imaging 11/27/2015 11:15 EDT OUTSIDE IMAGES - OTHER NEURO Imaging 11/27/2015 11:15 EDT documented as of this encounter Visit Diagnoses Not on filedocumented in this encounter Care Teams Fashion Consultant Sales Relationship Specialty Start Date End Date Rere Shah FNP [address] [place] [address] PCP - General 10/08/15 03/14/16 documented as of this encounter
--- OUTSIDE RECORDS SUMMARY | 2023-12-23 01:09 | XMS_ITS | Encounter Summary ---
Author Organization [facility] Address [address] [place] [address] Care Team Providers Care Sausage Wrapper Name Role Phone Asif Cabrera MD Primary Care Provider [phone] Reason for Visit * Reason Comments Back Pain Encounter Details Date Type Department Care Team (Latest Contact Info) Description 08/01/2017 8:15 EDT Office Visit [facility] Interventional Pain [address] [place] [address] Ned Spann MD [address] [facility] [address] [place] [address] Spondylosis of lumbar region without [...] Sign Reading Time Taken Comments Blood Pressure 112/74 08/01/2017 0928 EDT Pulse 76 08/01/2017 0928 EDT Temperature 36.3 ??C (97.4 ??F) 08/01/2017 0823 EDT Respiratory Rate - - Oxygen Saturation [...] * Patient Instructions* Megan Mckeon RN - 08/01/2017 8:15 EDT [facility] [address] [address] Patient Instructions You have had your Radiofrequency [...] for a follow up to discuss options. Patient Education Topic: Method: Handout and Verbal Taught to: Patient Barriers: None Outcomes: independent and verbalized understanding Signature: Megan Mcgregor RN documented in this encounter Discharge Disposition Disposition Code Departure Means Destination Auto Discharge documented in this encounter Progress Notes * Lavern Matos - 08/01/2017 0815 EDT [facility] Rooming Note Does patient have a Cephalometric Technician? YES Is patient NPO? (Solids since midnight & liquids for 4 hrs) NO Blood Thinners: Is patient on Blood Thinners? NO If yes, taking? If stopped, who authorized stopping? Related comments: Infections: Any recent infections, fever of illnesses? NO If on antibiotics, is it 7-10 days past the date of completion of antibiotics? NO : (for females of child-bearing age) Is there a chance current ? Do you have any type of implanted device? Other: * Megan Mckeon RN - 08/01/2017 0815 EDT Thermal RFA parameters: Temp (Celcius): 80 Time (Seconds): 150 xxxxxxxxxxxxxxxxxx xxxxxxxxxxxxxxxxxxxx xxxxxxxxxxxxxxxxxxxx Location Sensory: 50 Hz Motor: 2 Hz Lt Sacral Ala 0.16 Negative xxxxxxxxxxxxxxxxxxx xxxxxxxxxxxxxxxxxxxxx xxxxxxxxxxxxxxxxxxxxx Lt L5 0.10 Negative xxxxxxxxxxxxxxxxxxx xxxxxxxxxxxxxxxxxxxxx xxxxxxxxxxxxxxxxxxxxx Lt L4 0.18 Negative xxxxxxxxxxxxxxxxxxx xxxxxxxxxxxxxxxxxxxxx xxxxxxxxxxxxxxxxxxxxx * Ned Spann - 08/01/2017 0815 EDT Patient Name: Khris Fisher : 1990 Date of Service: 08/01/2017 Requesting physician: Asif Cabrera via Erik Wakefield Cardiac Cath Technologist: Ned Spann MD Cell Changer: None Procedure: Therapeutic lumbar radiofrequency ablation at L$, L5, sa on left Interval History: Patient returns at the request of Asif Cbarera for continued evaluation and treatment recommendations of [...] in the consultation notes from Erik Wakefield' last encounter including pain onset, location, course, workup, therapeutic attempts, and associated functional limitations. The patient reports no recent changes in the character, quality, or distribution of the pain. There are no recent onset of new associated symptoms such as changes in strength, sensation, or bladder control. All previous medical records including current medications, anticoagulation status, any signs of current infection, and new imaging were reviewed. Injection History: Had 2 sets of lumbar facet injections before moving on to diagnostic mbb and now RFA Allergies: No Known Allergies Review of Systems: Negative for any fever, chills, nausea/vomiting, headaches, chest pain, palpitations, shortness of breath, bladder/bowel incontinence. No easy bruising, bleeding, anti-coagulation or known recent infections. Physical Exam: Vitals: BP 123/80 Pulse 87 Temp 36.3 ??C (97.4 ??F) (Tympanic) General: Patient is alert and [...] radiculopathy Plan: Mr. Khris Fisher is a 27 y.o. male that presents to the pain clinic to undergo lumbar radiofrequency ablation in regards to his chronic back pain. All risks, benefits, and alternatives were thoroughly explained to Mr. Khris Fisher who verbally communicated understanding of the management plan. Proceed with radiofrequency ablation at L4, L5, Sa on left Follow up: We will follow up with the patient in 6 weeks by phone to assess the response to the RF ablation that was done today. Procedure: The patient gave informed written consent [...] documentation in this encounter. Ned Spann MD documented in this encounter Plan of [...] injection 15 mg 15 mg (3 mL), cruzito-neural, NOW X1, 1 dose, On Tue08/01/17 at 0930, Routine Given by Other 08/01/2017 9:27 EDT 15 mg documented in this encounter Orders Medications Ordered That Angel ht Not Have Been Administered Count Last Ordered Date First Ordered Date bupivacaine (PF) (MARCAINE) 0.5 % (5 mg/mL) injection 15 mg 1 08/01/2017 documented in this encounter Care Teams Sausage Wrapper Relationship Specialty Start Date End Date Asif Cabrera MD [address] [place] [address] PCP - General 03/15/16 documented as of this encounter
--- OUTSIDE RECORDS SUMMARY | 2023-12-23 01:09 | XMS_ITS | Encounter Summary ---
Author Organization [facility] Address [address] [place] [address] Care Team Providers Care Anesthesiology Faculty Name Role Phone Rere Shah RADHA Primary Care Provider + Reason for Referral * Consult (Routine/Next Available) - Specialty Report Received Specialty Diagnoses / Procedures Referred By Zenon balderas Referred To Contact Pain Medicine Diagnoses Low back pain radiating to left leg Yossi Wakefield PA-C [address] [place] [address] [facility] [address] [place] [address] Referral ID Status Reason Start Date Expiration Date Visits Requested Visits Authorized [id number] Specialty Report Received Specialty Services Required 01/02/2016 1 1 Question Answer Reason for Request: Low back pain radiating to left leg Has the patient had 6 weeks of conservative treatment such as physicial therapy or NSAIDS? Yes Associated Notes: PT & CHIRO & NSAIDS Comments Recommend LEFT sided L4-L5/L5-S1 facet injections Reason for Visit * Reason Comments Back Pain low back pain Encounter Details Date Type Department Care Team (Late st Contact Info) Description 01/02/2016 15:15 EDT Office Visit [facility] - [address] [address] Yossi Wakefield PA-C [address] [place] [address] Low back pain radiating to left leg (Primary Dx) Social History Tobacco Use Types Packs/Day Years Used Date Smoking Tobacco: Never Sex and Gender Information Value Date Recorded Sex Assigned at Not on file Gender Identity Not on file Sexual Orientation Not on file documented as of this encounter Progress Notes * Yossi Wakefield PA - 01/02/2016 1515 EDT Khris Fisher is being seen as a consultation from Dr. Shah. Chief Complaint Patient presents with ??? Back Pain low back pain The encounter diagnosis was Low back pain radiating to left leg. HPI Mr. Fisher is a 25 y.o. pleasant male who returns to the clinic today, 01/02/2016, for FU post MRI (01/02/2016). The patient reports NO significant improvement since his last visit. Mr. Fisher presented to the clinic for the fist time in 12/12/2015, with 100% LBP, left sided radiating to left buttock and proximal thigh ONSET: Gradual about 15 years ago. Has worsened and over the last 3 years symptoms wax and wane, but they are present everyday. CONSERVATIVE TX: He has tried PT & CHIRO, which did not help significantly. H/o injections: left SI joint injection without relief. ALLEVIATING FACTORS: lying down. AGGRAVATING FACTORS: bending forward, extending his back, sitting. PAIN: 6/10. SOCIAL: He has never smoked. He is currently working. HPI Patient Active Problem List Diagnosis ??? Low back pain radiating to left leg No past medical history on file. No past surgical history on file. Social History Substance Use Topics ??? Smoking status: Never Smoker ??? Smokeless tobacco: Not on file ??? Alcohol use Not on file No family history on file. Current Outpatient Prescriptions Medication Sig Dispense Refill ??? cyclobenzaprine (FLEXERIL) 10 mg tablet Take 10 mg by mouth as needed for Muscle Spasms. ??? fluticasone (FLONASE) 50 mcg/actuation nasal spray Instill 100 mcg into both nostrils as needed. ??? ibuprofen (MOTRIN) 800 mg tablet Take 800 mg by mouth daily as needed for Pain. No current facility-administered medications for this visit. No Known Allergies Review of Systems Physical Exam Ortho Exam Neurologic Exam Today, 01/02/2016, I independently reviewed the following: MRI from prior work up in December 2015: L1-2, L2-3, and L3-4 there is no focal herniation, central canal stenosis, or foraminal compromise. L4-5 disc bulge is present without focal herniation or central canal stenosis and there is no foraminal impingement. L5-S1 there is a mild disc bulge without focal herniation or central canal stenosis and there is noforaminal impingement. Plain radiographs (AP/Lat/Flex/Ex): 1. Five (5) non-rib bearing lumbar vertebrae 2. Facet arthropathy of the lower lumbar spine 3. Disc height reduction at L5-S1 conistent with degenerative disc disease 4. No fractures or pars defects noted ?? Assessment 25 y.o. male with left-sided LBP radiating to the left buttock and proximal S1 dermatome of his thigh not concordant with MRI; referred facetogenic/discogenic pain is plausible. He has agreed to the following plan. Other Orders Placed This Visit Procedures ??? Amb Pain Procedure Plan: 1. Order L4-L5/L5-S1 LEFT-sided facet injections 2. Continue activity as tolerated 3. Phone FU post facet injections 4. If no relief from facet injections, consider L5-S1 DEMETRIS CC: Dr. Pablo Bravo was the attending physician available in the clinic today if needed. A consultation was not required. documented in this encounter Plan of Treatment Scheduled Referrals Name Type Priority Associated Diagnoses Orde r Schedule AMB PAIN PROCEDURE Outpatient Referral Routine Low back pain radiating to left leg Ordered: 01/02/2016 documented as of this encounter Visit Diagnoses Diagnosis Low back pain radiating to left leg- Primary Lumbago documented in this encounter Care Teams Anesthesiology Faculty Relationship Specialty Start Date End Date Rere Shah FNP [address] [place] [address] PCP - General 10/08/15 03/14/16 documented as of this encounter
--- OUTSIDE RECORDS SUMMARY | 2023-12-23 01:09 | XMS_ITS | Encounter Summary ---
Author Organization [facility] Address [address] [place] [address] Care Team Providers Care Para Machine Operator Name Role Phone Asif Cabrera MD Primary Care Provider [phone] Reason for Visit * Reason Comments Back Pain Encounter Details Date Type Department Care Team (Latest Contact Info) Description 02/04/2017 10:00 EST Office Visit [facility] Interventional Pain [address] [place] [address] Ned Spann MD [address] [facility] [address] [place] [address] Spondylosis of lumbar region without [...] Sign Reading Time Taken Comments Blood Pressure 136/63 02/04/2017 1109 EST Pulse 82 02/04/2017 1109 EST Temperature 35.9 ??C (96.6 ??F) 02/04/2017 1011 EST Respiratory Rate - - Oxygen Saturation - - Inhaled Oxygen Concentration - - Weight 81.6 kg (180 lb) 02/04/2017 1011 EST Height 167.6 cm (5' 6) 02/04/2017 1011 EST Body Mass Index 29.05 02/04/2017 1011 EST documented in this encounter Functional Status Functional Status Response Date of Assess ment Because of a physical, menta l, or emotional condition, does this person have difficulty doing errands alone such as visiting a doctor's office or shopping? No 02/04/2017 Cognitive Status Response Date of Assessm ent Because of a physical, menta l, or emotional condition, does this person have serious difficulty concentrating, remembering, or making decisions? No 02/04/2017 documented as of this encounter Discharge Diagnoses Diagnosis M47.816 Spondylosis without myelopathy or radiculopathy, lumbar region-M47.816[ICD-10-CM] documented in this encounter Patient Instructions * Patient Instructions* Jerrica Chung RN - 02/04/2017 10:00 EST [facility] [address] [address] Medial Branch Block Patient Instructions You underwent a procedure called Bilateral Lumbar MEDIAL BRANCH BLOCK today. This is a diagnostic test to determine if this is the cause of your pain. Your results from today???s injection will help us guide further care for you. Please call us back tomorrow with your hours and % of relief. Following this procedure, continue to be active for the Remainder of the day and maintain your usual daily routine. Do not drive or operate any motorized vehicles or equipment. Keep track of how long you received relief as well as what percentage of pain relief immediately following the procedure. It can take 30-60 minutes for the long acting local anesthetic to start to work. Separate the needle discomfort, pressure and tightness caused by this procedure from your regular pain. This diagnostic procedure is ONLY intended to last for a number of hours, not days or weeks.Please contact our office the day after your Medial Branch Block with your results. PROCEDURE END TIME: (nurse) 11:15 PAIN RELIEF START TIME: PAIN RELIEF END TIME: HOURS OF RELIEF PERCENTAGE OF RELIEF (0-100%) ADDITIONAL MEDIAL BRANCH BLOCK INSTRUCTIONS Do not operate a automobile or other motorized equipment for the remainder of the day today. You may resume your normal activities or rest tomorrow. If you feel sore where the needles were placed, please use ice to the area for up to 20 minutes at a time. Do not use heat, as this may cause swelling. Once your pain has returned you may resume anti-inflammatory medication (NSAIDs: ibuprofen, Advil, Motrin, alive). NSAIDs and ice will help with any increase in pain you may have after your block has worn off. If you have a fever or any redness or other signs of infection at the injection sites after today, please contact us immediately. Patient Education Topic: Method: Handout and Verbal Taught to: Patient Barriers: None Outcomes: independent and verbalized understanding Jerrica Chung RN documented in this encounter Discharge Disposition Disposition Code Departure Means Destination Auto Discharge documented in this encounter Progress Notes * Vijaya [place] V - 02/04/2017 1000 EST [facility] Rooming Note Does patient have a Recreation Supervisor? Yes Is patient NPO? (Solids since midnight [...] age) Is there a chance current ? N/a Other: * Ned Spann - 02/04/2017 1000 EST Patient Name: Khris Fisher : 1990 Date of Service: 02/04/17 Requesting physician: Yossi Wakefield Metalworking Instructor: Ned Spann MD Television Engineer: none Procedure: Diagnostic medial branch blocks at lumbar L4, L5, Sa b/l Interval History: Patient returns at the initial request of Yossi Wakefield for continued evaluation and treatment recommendations of the patient's axial back pain. Khris Fisher has been seen here and at orthopedics and his symptoms are well described in previous notes. Patient currently denies any progressive weakness, unexplained fever, trauma or unexplained weight loss. Details of the current complaint are thoroughly described in the consultation notes fromYossi Wakefield's last encounter including pain onset, location, [...] and new imaging were reviewed. Injection History: 02/07/2017: medial branch blocks at L3, L4, Sa b/l Had facet injections with limited relief Allergies: No Known Allergies Review of Systems: Negative for any fever, chills, nausea/vomiting, headaches, chest pain, palpitations, shortness of breath, bladder/bowel incontinence. No easy bruising, bleeding, anti-coagulation or known recent infections. Physical Exam: Vitals: BP 136/63 (BP Cuff Location: Left arm, Patient Position: Prone, BP Cuff Sizes: Adult, long) Pulse 82 Temp 35.9 ??C (96.6 ??F) (Tympanic) Ht 167.6 cm (66) Wt 81.6 kg (180 lb) BMI 29.05 kg/m2 General: Patient is alert and oriented, no acute distress Lungs: symmetric chest rise, no evidence of labored breathing Skin: clear, warm, dry and intact and no rashes, bruises or petechiae noted Musculoskeletal: Gait: patient ambulates independently, steady gait no obvious scoliosis or abnormal curvature of the spine Lumbar Spine: moderate tenderness elicited upon palpation, pain exacerbated with rotational torque Lower Extremity: strength 5/5 in all major muscle groups b/l, sensory bilaterally equal to light touch, negative straight leg test Assessment: 1. Spondylosis of lumbar region without myelopathy or radiculopathy Plan: Mr. Khris Fisher is a 26 y.o. male that presents to the pain clinic to undergo diagnostic medial branch blocks in regards to his chronic back pain. All risks, benefits, and alternatives were thoroughly explained to Mr. Khris Fisher who verbally communicated understanding of the management plan. Proceed with diagnostic medial branch blocks at L4, L5, sa b/l Follow up: will call tomorrow with results Procedure: The patient gave informed written consent to proceed with this procedure following a detailed discussion of the risks and benefits associated with lumbar medial branch blocks including but not limited to infection, bleeding, headache, further exacerbation of current symptoms, neurological injury, and lack of efficacy. The patient was then placed in prone position, the skin over the lumbar region was prepped with chlorhexadine, and the site was marked and draped with sterile towels. Strict sterile technique was maintained throughout the procedure. A time out was performed with full staff present to identify the patient, verify the procedure being performed, and review allergies Flouroscopy was used to identify the appropriate lumbar anatomy. The skin and subcutaneous tissue were anesthetized with 2% lidocaine. A 22 guage 3.5 inch spinal needle was inserted under fluoroscopic guidance to contact the junction of the superior articulating process and transverse process at the Lt L4, Rt L4, Lt L5, Rt L5, Lt Sacral Ala and Rt Sacral Ala levels. Final needle position was confirmed with fluoroscopy. Aspiration was negative for blood or CSF. Next, 0.3 ml of 0.5% bupivacaine was injected at each site, the needles were restyletted and withdrawn. There was no paresthesia during needle placement and aspiration was negative at all times. The patient tolerated the procedure well and there were no apparent complications. Written and verbal discharge instructions were reviewed with the patient prior to discharge. They will report the results of today???s diagnostic injection via telephone within 24 hours Pain Score (from Vitals) 02/04/2017 02/04/2017 Initial score 6 - Final score 6 0 Location BACK BACK Comment pre post Ned Spann MD documented in this encounter [...] (PF) (MARCAINE) 0.5 % (5 mg/mL) injection 9 mg 9 mg (1.8 mL), cruzito-neural, NOW X1, 1 dose, On Tue02/04/17 at 1115, Routine Given by Other 02/04/2017 10:58 EST 9 mg documented in this encounter Orders Medications Ordered That Angel ht Not Have Been Administered Count Last Ordered Date First Ordered Date bupivacaine (PF) (MARCAINE) 0.5 % (5 mg/mL) injection 9 mg 1 02/04/2017 documented in this encounter Care Teams Para Machine Operator Relationship Specialty Start Date End Date Asif Cabrera MD [address] [place] [address] PCP - General 03/15/16 documented as of this encounter
--- OUTSIDE RECORDS SUMMARY | 2023-12-23 01:09 | XMS_ITS | Encounter Summary ---
Author Organization [facility] Address [address] [place] [address] Care Team Providers Care Speed Belt Sander Tender Name Role Phone Rere Shah Primary Care Provider + Reason for Visit * Reason Onset Date Comments Diagnostic Imaging Report 12/16/2015 Encounter Details Date Type Department Care Team (Late st Contact Info) Description 12/16/2015 Telephone [facility] Spine Program - [address] [address] Yossi Wakefield PA-C [address] [facility] [place] [address] Diagnostic Imaging Report Social History Tobacco Use Types Packs/Day Years Used Date Smoking Tobacco: Never Sex and Gender Information Value Date Recorded Sex Assigned at Not on file Gender Identity Not on file Sexual Orientation Not on file documented as of this encounter Miscellaneous Notes * Telephone Encounter - Olesya Mello - 12/16/2015 0919 EDT Called patient with date and time of MRI and f/u appointment's. Provided appropriate phone numbers to reschedule if necessary. documented in this encounter Plan of Treatment Not on file documented as of this encounter Visit Diagnoses Not on filedocumented in this encounter Care Teams Speed Belt Sander Tender Relationship Specialty Start Date End Date Rere Shah FNP [address] [place], [place] [address] PCP - General 10/08/15 03/14/16 documented as of this encounter
--- OUTSIDE RECORDS SUMMARY | 2023-12-23 01:09 | XMS_ITS | Encounter Summary ---
Author Organization [facility] Address [address] [place] [address] Care Team Providers Care Director Of Quality Control Name Role Phone Asif Cabrera MD Primary Care Provider [phone] Reason for Visit * Reason Onset Date Comments Results 04/27/2019 Encounter Details Date Type Department Care Team (Late st Contact Info) Description 04/27/2019 Telephone [facility] Interventional Pain [address] [place] [address] Melania Colón, TRISTON Results Social History Tobacco [...] encounter Miscellaneous Notes * Telephone Encounter - Melania Colón RN - 04/27/2019 1422 EST Left message for patient to contact the clinic to discuss how he has been doing after his bilat. Ablations. Housemate states he has wanted to call the clinic to schedule an appointment and she will pass on the message. documented in this encounter Plan of Treatment Not on file documented as of this encounter Visit Diagnoses Not on filedocumented in this encounter Care Teams Director Of Quality Control Relationship Specialty Start Date End Date Asif Cabrera MD [address] [place] [address] PCP - General 03/15/16 documented as of this encounter
--- OUTSIDE RECORDS SUMMARY | 2023-12-23 01:09 | XMS_ITS | Encounter Summary ---
Author Organization [facility] Address [address] [place] [address] Care Team Providers Care Principal Consulting Engineer Name Role Phone Asif Cabrera MD Primary Care Provider [phone] Reason for Visit * Reason Onset Date Comments Follow-up 03/30/2016 Encounter Details Date Type Department Care Team (Late st Contact Info) Description 03/30/2016 Telephone [facility] Spine Program - [address] [id number] Yossi Wakefield PA-C [address] [place], [place] [address]ey [facility] [place] [address] Follow-up Social History Tobacco Use Types Packs/Day Years [...] encounter Miscellaneous Notes * Telephone Encounter - Edu Campa Brandi - 03/30/2016 1352 EST patient called to report in on the results of his injection. He however left no info regarding it and when I called him back he was unavailable so I left a message for him to call our office and if he got voicemail to leave a detailed message the results of the injection. documented in this encounter Plan of Treatment Not on file documented as of this encounter Visit Diagnoses Not on filedocumented in this encounter Care Teams Principal Consulting Engineer Relationship Specialty Start Date End Date Asif Cabrera MD [address] [place] [address] PCP - General 03/15/16 documented as of this encounter
--- OUTSIDE RECORDS SUMMARY | 2023-12-23 01:09 | XMS_ITS | Clinical Summary ---
Author Organization [facility] Address [address] [place] [address] Care Team Providers Care Integration Analyst Name Role Phone Asif Cabrera MD Primary Care Provider [phone] Allergies No known active allergies Medications Medication [...] original. Patient has given permission for the [facility] to verbally discuss the following information with [...] back pain radiating to left leg 01/02/2016 Medical History Medical History Date Comments Environmental allergies Social History Tobacco Use Types Packs/Day Years [...] on file Sexual Orientation Not on file Obstetrics History Last Filed Vital Signs Vital Sign Reading [...] Body Mass Index 30.67 04/01/2017 1354 EST Plan of Treatment Health Maintenance Due Date Last Done Comments Hepatitis C Screen 1990 Hepatitis B Vaccine (1 of 3 - 19+ 3-dose series) 07/07 COVID-19 Vaccine (2022-24 season) 2022 Care Teams Integration Analyst Relationship Specialty Start Date End Date Asif Cabrera MD [address] [place] [address] PCP - General 03/15/16
--- OUTSIDE RECORDS SUMMARY | 2023-12-23 01:09 | XMS_ITS | Encounter Summary ---
Author Organization [facility] Address [address] [place] [address] Care Team Providers Care Stencil Machine Operator Name Role Phone Asif Cabrera MD Primary Care Provider [phone] Reason for Visit * Reason Comments Back Pain Encounter Details Date Type Department Care Team (Late st Contact Info) Description 04/21/2018 12:45 EST Office Visit [facility] Interventional Pain [address] [place], [place] [id number] Unknown, ProviderMD Ned Spann MD [address] [facility] [address] [place] [address] Tiburcio Suggs, DO [address] [place] [address] Spondylosis of lumbar region without myelopathy or [...] Sign Reading Time Taken Comments Blood Pressure 141/84 04/21/2018 1401 EST Pulse 83 04/21/2018 1401 EST Temperature 36.4 ??C (97.6 ??F) 04/21/2018 1309 EST Respiratory Rate - - Oxygen Saturation [...] * Patient Instructions* Megan Mckeon RN - 04/21/2018 12:45 EST [facility] [address] [address] Patient Instructions You have had your Radiofrequency [...] documented in this encounter Progress Notes * Jeff Avalos - 04/21/2018 1245 EST [facility] Rooming Note Does patient have a Neighborhood Service Center Director? yes Is patient NPO? (Solids since midnight & liquids for 4 hrs) no Blood Thinners: Is patient on Blood Thinners? no If yes, taking? If stopped, who authorized stopping? Related comments: Infections: Any recent infections, fever of illnesses? Yes flu If on antibiotics, is it 7-10 days past the date of completion of antibiotics? no : (for females of child-bearing age) Is there a chance current ? Do you have any type of implanted device? no Other: Flu and on antibiotics two weeks ago * Megan Mckeon RN - 04/21/2018 8725 EST Thermal RFA parameters: Temp (Celcius): 80 Time (Seconds): 150 xxxxxxxxxxxxxxxxxx xxxxxxxxxxxxxxxxxxxx xxxxxxxxxxxxxxxxxxxx Location Sensory: 50 Hz Motor: 2 Hz Rt Sacral Ala 0.66 Negative xxxxxxxxxxxxxxxxxxx xxxxxxxxxxxxxxxxxxxxx xxxxxxxxxxxxxxxxxxxxx Rt L5 0.34 Negative xxxxxxxxxxxxxxxxxxx xxxxxxxxxxxxxxxxxxxxx xxxxxxxxxxxxxxxxxxxxx Rt L4 0.20 Negative xxxxxxxxxxxxxxxxxxx xxxxxxxxxxxxxxxxxxxxx xxxxxxxxxxxxxxxxxxxxx * Tiburcio Suggs DO - 04/21/2018 1245 EST Patient Name: Khris Fisher : 1990 Date of Service: 04/21/2018 Requesting physician: Asif Cabrera Project Production Engineer: Ned Spann MD Thoracic Surgeon: Tiburcio Suggs DO Procedure: Therapeutic lumbar radiofrequency ablation at right L4, L5, and SA Interval History: Patient presents at the request of Asif Cabrera for continued evaluation and treatment recommendations of the patient's pain. Khris Fisher primarily localizes the pain at his axial back, with radiation to the hips. He describes the pain as throbbing and aching in character. Patient currently denies any progressive weakness,unexplained fever, trauma or unexplained weight loss. Patient has undergone diagnostic injections and left sided RFA with great relief. Today's pain score is 4 out of 10. Details of the current complaint are thoroughly described in the consultation notes from Erik Wakefield's last encounter including pain onset, location, course, workup, therapeutic attempts, and associated functional limitations. The patient reports no recent changes in the character, quality, or distribution of the pain. There are no recent onset of new associated symptoms such as changes in strength, sensation, or bladdercontrol. All previous medical records including current medications, anticoagulation status, any signs of current infection, and new imaging were reviewed. Injection History: 04/21/2018: lumbar radiofrequency ablation at right L4, L5, and SA Allergies: No Known Allergies Review of Systems: Negative for any fever, chills, nausea/vomiting, headaches, chest pain, palpitations, shortness of breath, bladder/bowel incontinence. No easy bruising, bleeding, anti-coagulation or known recent infections. Physical Exam: Vitals: BP 141/84 (BP Cuff Location: Right arm, Patient Position: Sitting, BP Cuff Sizes: Adult, long) Pulse 83 Temp 36.4 ??C (97.6 ??F) (Tympanic) General: Patient is alert and oriented, no acute distress Lungs: symmetric chest rise, no evidence of labored breathing Skin: clear, warm, dry and intact and no rashes, bruises or petechiae noted Musculoskeletal: Gait: patient ambulates independently , steady gait no obvious scoliosis or abnormal curvature of the spine Lumbar Spine: right sided tenderness elicited upon palation , pain elicited upon facet loading Lower Extremity: strength 5/5, sensory bilaterally equal to light touch, Assessment: 1. Spondylosis of lumbar region without myelopathy or radiculopathy Plan: Mr. Khris Fisher is a 27 y.o. male that presents to the pain clinic to undergo lumbar radiofrequency ablation in regards to his chronic back pain. All risks, benefits, and alternatives were thoroughly explained to Mr. Khris Fisher who verbally communicated understanding of the management plan. Proceed with radiofrequency ablation at right L4, L5, and SA Follow up: We will follow up with the patient in 6 weeks by phone to assess the response to the RF ablation that was done today. -He will also call us when the pain relief diminishes or when he would like to repeat the left sideablation. Procedure: The patient gave informed written consent [...] Please see additional documentation in this encounter. Tiburcio Suggs DO Pain Medicine Fellow Attending attestation: I have seen and evaluated the patient with the resident/fellow. I agree withthe findings and plan of care documented in the resident's/fellow's note. In addition, I was present and participating during the entire procedure. Ned Spann MD documented in this encounter [...] mL), cruzito-neural, NOW X1, 1 dose, On Tue04/21/18 at 1400, Routine Given by Other 04/21/2018 13:57 EST 15 mg documented in this encounter Orders Medications Ordered That Angel ht Not Have Been Administered Count Last Ordered Date First Ordered Date bupivacaine (PF) (MARCAINE) 0.5 % (5 mg/mL) injection 15 mg 1 04/21/2018 documented in this encounter Care Teams Stencil Machine Operator Relationship Specialty Start Date End Date Asif Cabrera MD [address] [place] [address] PCP - General 03/15/16 documented as of this encounter
--- OUTSIDE RECORDS SUMMARY | 2023-12-23 01:09 | XMS_ITS | Encounter Summary ---
Author Organization [facility] Address [address] [place] [address] Care Team Providers Care Softball Umpire Name Role Phone Asif Cabrera MD Primary Care Provider [phone] Encounter Details Date Type Department Care Team (Late st Contact Info) Description 11/09/2021 Lab Requisition [facility] Pathology & Laboratory Medicine - [facility] [address] [place] [address] Outr Resulting Lab, Provider Social History Tobacco Use Types Packs/Day Years [...] No 08/01/2017 documented as of this encounter Plan of Treatment Not on file documented as of this encounter Procedures Procedure Name Priority Date/Time Associated Diagnosis Comments AST Routine 11/09/2021 12:05 EDT documented in this encounter Results * AST (11/09/2021 12:05 EDT) AST 30 15 - 46 U/L 11/09/2021 21:17 EDT [facility] Blood VENOUS BLOOD / Unknown 11/09/2021 12:05 EDT 11/09/2021 20:54 EDT Provider Outr Resulting Lab CHEMISTRY & BLOOD GAS ORDERABLES [facility] [address] [place] [address] documented in this encounter Visit Diagnoses Not on filedocumented in this encounter Care Teams Softball Umpire Relationship Specialty Start Date End Date Asif Cabrera MD [address] [place] [address] PCP - General 03/15/16 documented as of this encounter
--- OUTSIDE RECORDS SUMMARY | 2023-12-23 01:09 | XMS_ITS | Encounter Summary ---
Author Organization [facility] Address [address] [place] [address] Care Team Providers Care Fire Hazard Inspector Name Role Phone Rere Shah Primary Care Provider + Reason for Referral * Radiology Services (Routine) - Closed Specialty Diagnoses / Procedures Referred By Contac t Referred To Contact Diagnoses Low back pain radiating to left leg Procedures ORBITS FOR FOREIGN BODY Yossi Wakefield PA-C [address] [place] [address] Referral ID Status Reason Start Date Expiration Date Visits Re quested Visits Authorized [id number] Closed 12/12/2015 1 1 * Radiology Services (Routine) - Closed Specialty Diagnoses / Procedures Referred By Contac t Referred To Contact Diagnoses Low back pain radiating to left leg Procedures MR LUMBAR SPINE WO CONTRAST Yossi Wakefield PA-C [address] [place] [address] Referral ID Status Reason Start Date Expiration Date Visits Re quested Visits Authorized Closed 12/12/2015 1 1 Reason for Visit * Reason Comments Back Pain low back pain radiat ing to left leg * Consult (Routine) - Closed Specialty Diagnoses / Procedures Referred By Contac t Referred To Contact Orthopedic Surgery Diagnoses Chronic low back pain Rere Shah FNP [address] [place] [address] [facility] Orth[facility] Spine [address] [place] [address] Referral ID Status Reason Start Date Expiration Date Visits Re quested Visits Authorized [id number] Closed 1 1 Encounter Details Date Type Department Care Team (Late st Contact Info) Description 12/12/2015 13:45 EDT Office Visit [facility] - [facility] [address] [place] [address] Yossi Wakefield PA-C [address] [facility] [place] [address] Low back pain radiating to left leg (Primary Dx) Discharge Disposition: Auto Discharge Social History Tobacco Use Types Packs/Day Years Used Date Smoking Tobacco: Never Sex and Gender Information Value Date Recorded Sex Assigned at Not on file Gender Identity Not on file Sexual Orientation Not on file documented as of this encounter Last Filed Vital Signs Vital Sign Reading Time Taken Comments Blood Pressure - - Pulse - - Temperature - - Respiratory Rate - - Oxygen Saturation - - Inhaled Oxygen Concentration - - Weight 79.4 kg (175 lb) 12/12/2015 1411 EDT Height 167.6 cm (5' 6) 12/12/2015 1411 EDT Body Mass Index 28.25 12/12/2015 1411 EDT documented in this encounter Discharge Diagnoses Diagnosis M54.5 Low back pain-M54.5[ICD-10-CM] documented in this encounter Discharge Disposition Disposition Code Departure Means Destination Auto Discharge documented in this encounter Progress Notes * Yossi Wakefield PA - 12/12/2015 1524 EDT Khris Fisher is being seen as a consultation from Dr. Shah. Chief Complaint Patient presents with ??? Back Pain low back pain radiating to left leg The encounter diagnosis was Low back pain radiating to left leg. HPI Mr. Fisher is a 25 y.o. pleasant male who presents to the clinic today with 100% LBP, left sided radiating to [...] never smoked. He is currently working. HPI There is no problem list on file for this patient. No past medical history on file. No [...] visit. No Known Allergies Review of Systems Constitutional: Positive for activity change. Negative for unexpected weight change. Eyes: Negative for visual disturbance. Respiratory: Negative for chest tightness. Cardiovascular: Negative for chest pain. Gastrointestinal: Negative for constipation. Genitourinary: Negative for difficulty urinating. Musculoskeletal: Positive for back pain. Negative for neck pain. Skin: Negative for rash. Neurological: Negative for numbness. Psychiatric/Behavioral: Negative for agitation and behavioral problems. Physical Exam Constitutional: He is oriented to person, place, and time. He appears well- developed and well-nourished. Eyes: EOM are normal. Pupils are equal, round, and reactive to light. Cardiovascular: Normal rate. Neurological: He is alert and oriented to person, place, and time. Skin: Skin is warm and dry. No rash noted. Psychiatric: He has a normal mood and affect. His behavior is normal. Back Exam Comments: GAIT: Normal. HEEL & TOE WALKING: NEG. LESIONS, RASHES OR HAIR DEB: NEG. FROM, but pain is elicited with bending and extension/rotation of the lumbar spine.TENDERNESS ON PALPATION: NEG. STRENGTH: 5/5 REFLEXES: Patellar 2/4 B/L; Achilles 2/4 B/L. BABINSKI: Down. CLONUS: NEG. DP: 2/2.SENSATION: Intact. SLR RIGHT: NEG. LEFT: NEG. HIP ROM: Full. ANABELA'S: NEG. Neurologic Exam Mental Status Oriented to person, place, and time. Cranial Nerves CN III, IV, Pupils are equal, round, and reactive to light. Extraocular motions are normal. Today, 12/12/2015, I ordered plain radiographs and MRI and I independently reviewed the following: Plain radiographs (AP/Lat/Flex/Ex): 1. Five (5) non-rib bearing lumbar vertebrae 2. Facet arthropathy of the lower lumbar spine 3. Disc height reduction at L5-S1 conistent with degenerative disc disease 4. No fractures or pars defects noted Assessment 25 y.o. male with left-sided LBP radiating to the left buttock and proximal S1 dermatome of his thigh that could be radicular in nature. He has agreed to the following plan. Other Orders Placed This Visit Procedures ??? MR LUMBAR SPINE WO CONTRAST ??? ORBITS FOR FOREIGN BODY Plan: 1. Order MRI 2. Continue activity as tolerated 3. FU post MRI same day CC: Dr. Pablo Santiago was the attending physician available in the clinic today if needed. A consultation wasnot required. documented in this encounter Plan of Treatment Not on file documented as of this encounter Procedures Procedure Name Priority Date/Time Associated Diagnosis Comments MR LUMBAR SPINE WO CONTRAST Routine 01/02/2016 13:12 EDT Low back pain radiating to left leg ORBITS FOR FOREIGN BODY Routine 01/02/2016 12:15 EDT Low back pain radiating to left leg documented in this encounter Results * MR LUMBAR SPINE WO CONTRAST (01/02/2016 13:12 EDT) Anatomical Region Laterality Modality Other 01/02/2016 13:1 2 EDT 01/02/2016 14:05 EDT Narrative 01/02/2016 14:05 EDT MRI of the lumbar spine January 02, 2016. HISTORY: Radiculopathy. COMPARISON: December 12, 2015. TECHNIQUE: Routine multiplanar MR imaging of the lumbar spine was acquired. FINDINGS: The visualized retroperitoneal tissues are unremarkable. There is no significant scoliotic curvature. The conus terminates at L1. Signal in the distal spinal cord is normal. Alignment of the lumbar vertebral bodies is anatomic. There is mild disc space narrowing at L4-5 and L5-S1 and note is also made of disc space narrowing at the T11-12 level. On the STIR sequence there are no focal marrow signal abnormalities in the lumbar spine. At L1-2, L2-3, and L3-4 there is no focal herniation, central canal stenosis, or foraminal compromise. At L4-5 disc bulge is present without focal herniation or central canal stenosis and there is no foraminal impingement. At L5-S1 there is a mild disc bulge without focal herniation or central canal stenosis and there is no foraminal impingement. IMPRESSION: Mild disc degeneration at L4-5 and L5-S1 as described above without significant central canal stenosis or foraminal impingement. Procedure Note Anuj Hollins MD - 01/02/2016 MRI of the lumbar spine January 02, 2016. HISTORY: Radiculopathy. COMPARISON: December 12, 2015. TECHNIQUE: Routine multiplanar MR imaging of the lumbar spine was acquired. FINDINGS: The visualized retroperitoneal tissues are unremarkable. There is no significant scoliotic curvature. The conus terminates at L1. Signal in the distal spinal cord is normal. Alignment of the lumbar vertebral bodies is anatomic. There is mild disc space narrowing at L4-5 and L5-S1 and note is also made of disc space narrowing at the T11-12 level. On the STIR sequence there are no focal marrow signal abnormalities in the lumbar spine. At L1-2, L2-3, and L3-4 there is no focal herniation, central canal stenosis, or foraminal compromise. At L4-5 disc bulge is present without focal herniation or central canal stenosis and there is no foraminal impingement. At L5-S1 there is a mild disc bulge without focal herniation or central canal stenosis and there is no foraminal impingement. IMPRESSION: Mild disc degeneration at L4-5 and L5-S1 as described above without significant central canal stenosis or foraminal impingement. Grigorios Delaportas PA-C IMG MRI ORDERA BLES * ORBITS FOR FOREIGN BODY (01/02/2016 12:15 EDT) Anatomical Region Laterality Modality Other 01/02/2016 12:1 5 EDT 01/02/2016 12:30 EDT Narrative 01/02/2016 12:30 EDT ORBITS FOR FOREIGN BODY ??01/02/2016 12:15 PM Clinical History/Comments: M54.5-Low back pain-ICD-10; MRI pending Comparisons: None. TECHNIQUE: Frontal and lateral views of the orbits. FINDINGS: No radiopaque foreign bodies are present within the orbits. Procedure Note Michael Jade MD - 01/02/2016 ORBITS FOR FOREIGN BODY 01/02/2016 12:15 PM Clinical History/Comments: M54.5-Low back pain-ICD-10; MRI pending Comparisons: None. TECHNIQUE: Frontal and lateral views of the orbits. FINDINGS: No radiopaque foreign bodies are present within the orbits. Yossi Twyla RODRIGUEZ-C IMG DIAGNOSTIC IMAGING ORDERABLES documented in this encounter Visit Diagnoses Diagnosis Low back pain radiating to left leg- Primary Lumbago documented in this encounter Historical Medications * This list may reflect changes made after this encounter. Medication Sig Dispensed Refills Start Date End Date fluticasone (FLONASE) 50 mcg/actuation nasal spray Instill 100 mcg into both nostrils as needed. Reported on 03/10/2016 ibuprofen (MOTRIN) 800 mg tablet Take 800 mg by mouth daily as needed for Pain. Reported on 07/01/2016 cyclobenzaprine (FLEXERIL) 10 mg tablet Take 10 mg by mouth as needed for Muscle Spasms. Reported on 07/01/2016 added in this encounter Care Teams Fire Hazard Inspector Relationship Specialty Start Date End Date Rere Shah FNP [address] [place] [address] PCP - General 10/08/15 03/14/16 documented as of this encounter
--- OUTSIDE RECORDS SUMMARY | 2023-12-23 01:09 | XMS_ITS | Encounter Summary ---
Author Organization [facility] Address [address] [place] [address] Care Team Providers Care Glaze Maker Name Role Phone Asif Cabrera MD Primary Care Provider [phone] Reason for Visit * Reason Onset Date Comments Appointment Related 01/04/2017 Encounter Details Date Type Department Care Team (Late st Contact Info) Description 01/04/2017 Telephone [facility] Interventional Pain [address] [facility] [place] [place] [address] Ned Spann MD [address] [place] [address] Appointment Related Social History Tobacco Use Types [...] No 07/01/2016 documented as of this encounter Miscellaneous Notes * Telephone Encounter - Gudelia Brady - 01/20/2017 1250 EDT 02/04/17 at 10:00 04/01/17 at 1:45 * Telephone Encounter - Chalo Baum - 01/07/2017 1409 EDT Pt has BC/BS [place] for insurance. Since last Facet rendered no positive relief, we will need to schedule LMBB. No Prior Auth is required for LMBB. Please schedule at this time. * Telephone Encounter - Jerrica Chung RN - 01/07/2017 0914 EDT RN spoke with the pt. He would like to move forward with MBB. Forwarded to PA to obtain prior auth for Lumbar MBB's moving towards RFA. Unsure whether or not they will accept facet injection. Pt states he has Blue Cross/Blue Shield. 01/07/17@1100: RN left message with the pt girlfriend to return to see what kind of relief he had from the facet injection he had on 07/01/16. 01/07/17@1400: RN spoke with the pt. He states he had 0% relief from the facet injection done on 07/11/2016. Forwarded to PA to obtain prior auth. * Telephone Encounter - Megan Mckeon RN - 01/06/2017 1408 EDT RN left vm for pt to call back regarding his questions about MBB/RFA procedures. Megan Mcgregor RN Injection History 07/01/16: therapeutic facet joint injections at bilateral L4-L5 and L5-S1- no relief 2015: lumbar facet joint injection at Left L4L5, L5S1 100% relief for over 3 weeks 07/02/15 Plan: He had great relief with the last facet injections but did not last very long and felt the right sided was still painful. We will repeat therapeutic facet joint injections at bilateral L4-L5 and L5-S1. If good short term relief, but no intermodal customer service relief, then he may be a candidate for radiofrequencyablation. Depending on his insurance, he may need medial branch blocks or the facets may be enough as diagnostic. If no relief at all, the follow up with Sarah Wakefield. Follow up: as needed. * Telephone Encounter - Gudelia Brady - 01/04/2017 1302 EDT Patient had last injection on 07/01/16. Patient got not relief. At the last appointment patient was told if the injection did not work, he would be considered for an RFA. Patient wants to talk to a nurse about a the medial branch block and what it entails. Please call. documented in this encounter Plan of Treatment Not on file documented as of this encounter Visit Diagnoses Not on filedocumented in this encounter Care Teams Glaze Maker Relationship Specialty Start Date End Date Asif Cabrera MD [address] [place] [address] PCP - General 03/15/16 documented as of this encounter
--- OUTSIDE RECORDS SUMMARY | 2023-12-23 01:09 | XMS_ITS | Encounter Summary ---
Author Organization [facility] Address [address] [place] [address] Care Team Providers Care Crop Or Grain Farmer Name Role Phone Rere Shah RADHA Primary Care Provider + Encounter Details Date Type Department Care Team (Late st Contact Info) Description 01/02/2016 11:56 EDT - 01/02/2016 23:59 EDT Hospital Encounter [address] [address] Brian Zambrano MD [address] [place] [address] Discharge Disposition: Auto Discharge Social History Tobacco Use Types Packs/Day Years Used Date Smoking Tobacco: Never Sex and Gender Information Value Date Recorded Sex Assigned at Not on file Gender Identity Not on file Sexual Orientation Not on file documented as of this encounter Discharge Diagnoses Diagnosis M51.36 Other intervertebral disc degeneration, lumbar region-M51.36[ICD-10-CM] M51.37 Other intervertebral disc degeneration, lumbosacral region-M51.37[ICD-10-CM] Z03.89 Encounter for observation for other suspected diseases and conditions ruled out-Z03.89[ICD-10-CM] documented in this encounter Medications at Time of Discharge Medication Sig Dispensed Refills Start Date End Date cyclobenzaprine (FLEXERIL) 10 mg tablet Take 10 mg by mouth as needed for Muscle Spasms. Reported on 07/01/2016 fluticasone (FLONASE) 50 mcg/actuation nasal spray Instill 100 mcg into both nostrils as needed. Reported on 03/10/2016 ibuprofen (MOTRIN) 800 mg tablet Take 800 mg by mouth daily as needed for Pain. Reported on 07/01/2016 documented as of this encounter Discharge Disposition Disposition Code Departure Means Destination Auto Discharge Home documented in this encounter Plan of Treatment Not on file documented as of this encounter Visit Diagnoses Not on filedocumented in this encounter Care Teams Crop Or Grain Farmer Relationship Specialty Start Date End Date Rere Shah FNP [address] [place] [address] PCP - General 10/08/15 03/14/16 documented as of this encounter
--- OUTSIDE RECORDS SUMMARY | 2023-12-23 01:09 | XMS_ITS | Encounter Summary ---
Author Organization [facility] Address [address] [place] [address] Care Team Providers Care Buyer Intern Name Role Phone Asif Cabrera MD Primary Care Provider [phone] Reason for Visit * Reason Onset Date Comments Results 02/08/2017 Encounter Details Date Type Department Care Team (Late st Contact Info) Description 02/08/2017 Telephone [facility] Interventional Pain [address] [place] [address] Ned Spann MD [address] [facility] [address] [place] [address] Results Social History Tobacco Use [...] No 02/04/2017 documented as of this encounter Miscellaneous Notes * Telephone Encounter - Gudelia Brady - 02/08/2017 1350 EST 04/01/17 at 1:45 * Telephone Encounter - Chalo Baum - 02/08/2017 1348 EST Pt has BC/BS [place] for insurance. 2nd MBB is required. Prior Auth is not required for LMBB. Please schedule at this time. * Telephone Encounter - Brenna Smith RN - 02/08/2017 1250 EST Post-MBB Pain Relief: Hours of relief: 5 hours Percentage relief: 100% Type of next appointment scheduled: Forward to PSS PA for 2nd diagnostic vs RFA * Telephone Encounter - Brenna Smith RN - 02/08/2017 1250 EST ----- Message from Jerrica Chung RN sent at 02/04/2017 11:00 EST ----- Regarding: results Call for results of MBB on 02/04/2017 * Telephone Encounter - Gudelia Brady - 02/08/2017 1248 EST Patient had LMBB on 02/04/17. Patient got 100% for 5 hours. documented in this encounter Plan of Treatment Not on file documented as of this encounter Visit Diagnoses Not on filedocumented in this encounter Care Teams Buyer Intern Relationship Specialty Start Date End Date Asif Cabrera MD [address] [place] [address] PCP - General 03/15/16 documented as of this encounter
--- OUTSIDE RECORDS SUMMARY | 2023-12-23 01:09 | XMS_ITS | Encounter Summary ---
Author Organization [facility] Address [address] [place] [address] Care Team Providers Care Language And Literature Division Chair Name Role Phone Asif Cabrera MD Primary Care Provider [phone] Reason for Visit * Reason Comments Back Pain bilateral Encounter Details Date Type Department Care Team (Latest Contact Info) Description 04/01/2017 13:45 EST Office Visit [facility] Interventional Pain [address] [place] [address] Ned Spann MD [address] [facility] [address] [place] [address] Spondylosis of lumbar region without [...] Sign Reading Time Taken Comments Blood Pressure 122/81 04/01/2017 1434 EST Pulse 87 04/01/2017 1434 EST Temperature 36.2 ??C (97.1 ??F) 04/01/2017 1354 EST Respiratory Rate 16 04/01/2017 1434 EST Oxygen Saturation - - Inhaled Oxygen Concentration - - Weight 86.2 kg (190 lb) 04/01/2017 1354 EST Height 167.6 cm (5' 6) 04/01/2017 1354 EST Body Mass Index 30.67 04/01/2017 1354 EST documented in this encounter Functional Status [...] No 04/01/2017 documented as of this encounter Discharge Diagnoses Diagnosis M47.816 Spondylosis without myelopathy or radiculopathy, 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 This was a diagnostic test to prepare you for the next step of your treatment. Following this procedure, continue to be active for the remainder of the day and maintain your usual daily routine. Please contact our office the day after your Medial Branch Block with your results. Keep track of how long you received relief as well as what percentage of pain relief immediately following the procedure. This diagnostic procedure is ONLY intended to last for a number of hours, not days or weeks. PROCEDURE END TIME: (nurse) 2:30 pm PAIN RELIEF START TIME: 2:35 pm PAIN RELIEF END TIME: HOURS OF RELIEF PERCENTAGE OF RELIEF (0-100%) ADDITIONAL MEDIAL BRANCH BLOCK INSTRUCTIONS Do not operate an automobile or other motorized equipment for the remainder of the day today. You may resume your normal activities or rest tomorrow. If you feel sore where the needles were placed, please use ice to the area for up to 20 minutes at a time. Do not use heat, as this may cause swelling. If you have any of the following symptoms, please contact us immediately. - Severe or worsening pain - Unexplained fever or chills Patient Education Topic: Method: Handout and Verbal Taught to: Patient Barriers: None Outcomes: independent and verbalized understanding Signature: Maeve Lee RN If you have any questions about your block, please call documented in this encounter Discharge Disposition Disposition Code Departure Means Destination Auto Discharge documented in this encounter Progress Notes * EsequielLinda stoddard - 04/01/2017 1345 EST [facility] Rooming Note Does patient have a [employer]? yes Is patient NPO? (Solids since midnight & liquids for 4 hrs) NA Blood Thinners: Is patient on Blood Thinners? no If yes, taking? If stopped, who authorized stopping? Related comments: Infections: Any recent infections, fever of illnesses? no If on antibiotics, is it 7-10 days past the date of completion of antibiotics? no : (for females of child-bearing age) Is there a chance current ? Other: * Ned Spann - 04/01/2017 1345 EST Patient Name: Khris Fisher : 1990 Date of Service: 02/04/17 Requesting physician: Asif Cabrera Cash Person: Ned Spann MD Benzene Operator: none Procedure: Diagnostic medial branch blocks at lumbar L4, L5, Sa b/l Interval History: Patient returns at the initial request of Asif Cabrera for continued evaluation and treatment recommendations of the patient's axial back pain. Khris Fisher has been seen here and at orthopedics and his symptoms are well described in previous notes. Patient currently denies any progressive weakness, unexplained fever, trauma or unexplained weight loss. Details of the current complaint are thoroughly described in the consultation notes fromAsif Cabrera's last encounter including pain onset, location, course, [...] and new imaging were reviewed. Injection History: 04/01/2017: medial branch blocks at L3, L4, Sa b/l Had facet injections with limited relief Allergies: No Known Allergies Review of Systems: Negative for any fever, chills, nausea/vomiting, headaches, chest pain, palpitations, shortness of breath, bladder/bowel incontinence. No easy bruising, bleeding, anti-coagulation or known recent infections. Physical Exam: Vitals: BP 130/87 (BP Cuff Location: Left arm, Patient Position: Sitting, BP Cuff Sizes: Adult, regular) Pulse 70 Temp 36.2 ??C (97.1 ??F) (Tympanic) Resp 18 Ht 167.6 cm (66) Wt 86.2 kg (190 lb) BMI 30.67 kg/m2 General: Patient is alert [...] within 24 hours Pain Score (from Vitals) 04/01/2017 04/01/2017 Initial score 7 - Final score 7 (No Data) Location BACK - Comment pre post Ned Spann MD documented [...] mL), intra-articular, NOW X1, 1 dose, On Tue04/01/17 at 1445, Routine Given by Other 04/01/2017 14:20 EST 15 mg documented in this encounter Orders Medications Ordered That Angel ht Not Have Been Administered Count Last Ordered Date First Ordered Date bupivacaine (PF) (MARCAINE) 0.5 % (5 mg/mL) injection 15 mg 1 04/01/2017 documented in this encounter Care Teams Language And Literature Division Chair Relationship Specialty Start Date End Date Asif Cabrera MD [address] [place] [address] PCP - General 03/15/16 documented as of this encounter
--- NOTE | 2023-12-23 07:30 | DI.MRI_ITS ---
Exam(s) MR LOWER JOINT RT WO EXAM: MR LOWER JOINT RT WO CLINICAL HISTORY: PAIN,ACUTE MEDIAL MENISCUS TEAR RT KNEE,S83.241A TECHNIQUE: Multiplanar multisequence MRI of the knee was performed. COMPARISON: CR XR KNEE 3V RT from 10/21/2023 FINDINGS: EFFUSION: There is a small amount of increased joint fluid. No large joint effusion. There is no Ba ker cyst in the popliteal fossa. MARROW:There is no evidence of fracture, bone contusion, nor osteochondral defects.. There are no si gnificant osseous lesions. PATELLOFEMORAL COMPARTMENT: The quadriceps tendon is intact. The patellar ligament is intact. There is no significant thinning of the retropatellar cartilage. No evidence of fissure. There is, however, a small artifactual appearing focus of signal abnormality in the retropatellar cartilage ove r the medial facet, proximally mid level, best seen on axial T2 fat sat sequence/image 26. No osteoc hondral defect at this level.There is no intraosseous signal to suggest recent patellar dislocation. There are no patellar retinacular tears. CRUCIATE LIGAMENTS: There is some mild abnormal signal related to the ACL but there does not appear t o be a high-grade ACL tear.The posterior cruciate ligament is intact. MEDIAL COMPARTMENT/MEDIAL MENISCUS: There are no tears of the medial meniscus evident.Anterior and po sterior horns as well as the body of the meniscus and meniscal roots are intact.. There is minimal articular cartilage thinning over the medial condyle. No prominent chondral defects nor osteochondral defects nor subarticular edema in the medial condyle nor in the medial tibial plat eau. There are no marginal osteophytes. MEDIAL COLLATERAL LIGAMENT: Intact LATERAL COMPARTMENT/LATERAL MENISCUS: There is no evidence of lateral meniscal tear.There are no juwan dral defects, osteochondral defects, subarticular marrow edema, nor osteophytes evident. ILIOTIBIAL BAND: Intact LATERAL COLLATERAL LIGAMENT COMPLEX: The fibular collateral ligament is intact. The biceps femoris t endon is intact.Popliteus muscle and tendon are intact. IMPRESSION: 1. No evidence of meniscal tear 2. Mild signal abnormality in the ACL but no high-grade ACL tear. PCL is also intact. There are no significant collateral ligament tears 3. No evidence of bone contusion, osteochondral defects, nor significant focal cartilage loss in the medial lateral compartments. 4. Small focus of signal abnormality in the retropatellar cartilage over the medial facet patella whi ch is evident on the fat sat T2 axial sequence. Possible small loose body at this level although loc ation of [place] parent bone donor site is not seen. There does, however, appear to be a very small j oint effusion evident. DATA REPOSITORY:
== END 2023-12-23 01:26 ==
LOC: DI 01:06
PROVIDERS: Visit Provider Student in an Organized Health Care Education/Training Program
DX: S83.241A Other tear of medial meniscus, current injury, right knee, initial encounter (principal); X58.XXXA Exposure to other specified factors, initial encounter
CPT/HCPCS: 73721

== ENCOUNTER 2024-06-19 08:33 | Outpatient (CLI) | payer OTHER, SELFPAY ==
--- NOTE | 2024-06-19 08:15 | DI.RAD_ITS ---
Exam(s) XR HIP LT AP LAT ONLY EXAM: XR HIP LT AP LAT ONLY CLINICAL HISTORY: Lt hip pain, M25.552. TECHNIQUE: 2D digital imaging was performed. COMPARISON: No exams were available for comparison FINDINGS: Two views No evidence of fracture or dislocation or joint space narrowing. No abnormal soft tissue calcificati ons. No degenerative subarticular cysts nor osteophytes. There is no radiographic evidence of avasc ular necrosis. Bone density is normal. No osseous lesions. IMPRESSION: No significant radiograph findings on these two views of the left hip. DATA REPOSITORY: RADIATION DOSE DELIVERED:
== END 2024-06-19 08:53 ==
LOC: DI 08:34
PROVIDERS: Visit Provider Anesthesiology Pain Medicine
DX: M25.552 Pain in left hip (principal)
CPT/HCPCS: 73502

== ENCOUNTER 2024-07-30 11:53 | Outpatient (CLI) | payer OTHER, SELFPAY ==
[2024-07-30 12:12] VITALS: BP 127/92; PULSE 85; RESP 20; TEMP 36.6; O2SAT 99
--- NOTE | 2024-07-30 12:27 | PDOC.PAIN ---
Date of service: 07/30/24 Time of Service: 12:50 Pain Managment Procedure Note Procedure Note Procedure Note: ?Sacroiliac Joint Steroid Injection ? Location: Bilateral SI Joints? Pre-procedure Diagnosis: Sacroiliitis, not elsewhere classified - M46.1 ? Post-procedure Diagnosis:? The same as above ? Sedation:? NONE ? Medication: Depo-Medrol 40 mg, bupivacaine 0.5% 1 mL, Omnipaque 0.25 mL per joint ? Estimated blood loss:? less than 2 cc ? Surgeon:? Marco Cronin MD ? COMMENT: THIS WILL BE BOTH DIAGNOSTIC AND THERAPEUTIC. Patient initially had left SI joint pain but now its bilateral ? Procedure Detail:? The procedure and potential risks were explained to the patient and informed written consent was obtained. The patient was escorted to the procedure room and placed in the prone position. Pillows were utilized for proper positioning and comfort. Time out was performed in the procedure room with nursing staff confirming the patient's identity, procedure to be performed, allergies, and any blood thinning or anti-platelet medications. The patient's lumbosacral area was prepped with ChloraPrep and draped in a sterile fashion. Sterile technique was maintained throughout the procedure.? Sterile gloves were used, a face mask was worn, and new single dose vials of all medications were used with the top being swabbed with alcohol and given time to dry prior to withdrawal of medication. Lidocaine 1% was used to anesthetize the skin. With fluoroscopic guidance, a 22-gauge 3.5 spinal needle was advanced into the posteroinferior aspect of the Bilateral SI joint. Confirmation of intra-articular position of the needle tip was obtained with injection of 0.25cc of Omnipaque 240 contrast which showed appropriate spread within the joint.? Following negative aspiration, 40mg of methylprednisolone mixed with 1 mL of bupivacaine 0.5% was injected.? The needle was gently removed. ?The patient tolerated the procedure well and was transported to the recovery area for observation and discharge instructions.? Permanent images saved and recorded. Plan:? Follow up prn. PAIN PRE PROCEDURE POST PROCEDURE [ ] COMMENT: [80] % BETTER AFTER INJECTION Consider basivertebral nerve ablation, inferior L5 superior S1. Coding Conscious Sedation used for procedure: No CPT Codes: SI Joint Inj; incl Fluoro * BILATERAL* - [id number] ([id number]) Additional Codes: Date of Service (25942) Date of service: 07/30/24
[2024-07-30 12:33] VITALS: PULSE 104; O2SAT 98
[2024-07-30 12:40] VITALS: PULSE 97; O2SAT 98
--- NOTE | 2024-07-30 12:50 | DI.RAD_ITS ---
Exam(s) XR PAIN CLINIC SACRIOILIAC 2V EXAM: XR PAIN CLINIC SACRIOILIAC 2V CLINICAL HISTORY: DX: Sacroiliac Dysfunction TECHNIQUE: 2D and realtime digital imaging was performed. Radiologist not present. CONTRAST MATERIAL: None. COMPARISON: No exams were available for comparison FINDINGS: Fluoroscopy was provided for pain management therapy. Sacroiliac joint injection Please refer to procedure report or details. radiation Exposure Index: Ka,r=22.23 mGy IMPRESSION: As above. RADIATION DOSE DELIVERED:
[2024-07-30] MEDS: Bupivacaine 0.5% Pres-Free 10 ML VIAL IJ (12:55)
[2024-07-30] MEDS: Omnipaque 240 MG/ML 50 ML BTL IJ (12:55)
[2024-07-30] MEDS: methylPREDNISolone ACETATE 80 MG/ML VIAL IJ (12:55)
[2024-07-30] MEDS: Nerve Block Tray 1 EACH MC (12:55)
== END 2024-07-30 11:54 | disposition home or self-care (01) ==
LOC: PC 11:54
PROVIDERS: PCP Nurse Practitioner Family; Visit Provider Anesthesiology Pain Medicine
DX: M46.1 Sacroiliitis, not elsewhere classified (principal); M54.50 Low back pain, unspecified
CPT/HCPCS: 27096; 72200; J0665; J1010; Q9967

== ENCOUNTER 2024-12-12 09:19 | Outpatient (CLI) | payer BC, SELFPAY ==
--- NOTE | 2024-12-12 06:00 | DI.RAD_ITS ---
Exam(s) XR PAIN CLINIC LUMBAR SP 2V EXAM: XR PAIN CLINIC LUMBAR SP 2V CLINICAL HISTORY: Dx: Lumbar Spondylosis TECHNIQUE: 2D and realtime digital imaging was performed. CONTRAST MATERIAL: Refer to procedure report. COMPARISON: No exams were available for comparison FINDINGS: Fluoroscopy was provided for Dr. Butler during the performance of a lumbar facet joint injection. Please refer to the procedure report for complete details. Ka,r=23.9 mGy IMPRESSION: RADIATION DOSE DELIVERED: 0.0 0.0 0
[2024-12-12 09:44] VITALS: BP 134/99; PULSE 95; RESP 17; TEMP 36.3; O2SAT 96
[2024-12-12 10:10] VITALS: PULSE 94; O2SAT 97
[2024-12-12 10:11] VITALS: BP 139/92; PULSE 106; RESP 21; O2SAT 97
[2024-12-12 10:16] VITALS: BP 137/94; PULSE 95; PULSE 97; RESP 19; O2SAT 97
[2024-12-12 10:20] VITALS: PULSE 103; RESP 18; O2SAT 96
--- NOTE | 2024-12-12 10:23 | PDOC.PAIN_ITS ---
Date of service: 12/12/24 Time of Service: 10:23 Pain Managment Procedure Note Procedure Note Procedure Note: INTRA-ARTICULAR FACET JOINT INJECTION Khris Fisher has been referred to the [facility] for intra-articular lumbar facet joint injection. DX: Lumbar spondylosis without myelopathy Pre-procedure pain VAS: 7/10 COMMENTS: I previously evaluated him in the office. No major changes in his symptoms since then Patient was interviewed and the medical record reviewed. There were no medical, pharmacologic, radiographic or other structural contraindications to attempting fluoroscopically guided intra-articular lumbar facet joint injection. Risks and expected side effects as well as potential benefit of the procedure were reviewed and voiced concerns addressed. The printed consent form was signed and witnessed. Standard time-out procedure was performed. Patient was placed in the prone position on the fluoroscopy table and automated blood pressure cuff and pulse oximeter applied. The skin entry point for approaching left facet joints at L4-L5 was identified under the most advantageous fluoroscopic view and marked. Following thorough Chlorhexadine preparation of the skin and draping and 1% lidocaine infiltration of the skin entry point and subcutaneous tissues, a 22 gauge spinal needle was placed under fluoroscopic guidance into left L4-L5 facet joint. Intra-articular placement was confirmed by a clear arthrogram resulting from the injection of 0.25ml Omnipaque 240. .5ml 1% lidocaine and 20mg Depomedrol were injected intra- articularily with an initial reproduction of a significant component of the usual pain. The exact procedure was completed at L5-S1. Vital signs were stable throughout the procedure and were as recorded in the docflowsheet by the nursing staff. If given, dosages of intravenous drugs for anxiolysis and analgesia were documented in MAR. Follow up plans and appointments were discussed. Post procedure instruction was given as documented in nursing documentation and having met discharge criteria,was discharged from the [facility]. COMMENTS: He tolerated this procedure well. Post-procedure pain VAS: 1/10 Asif Butler DO, MPH [facility] CC: Dayanara Sumner Coding Conscious Sedation used for procedure: No CPT Codes: LMBB (includes Fluoro) Lumbar/Sacral, 2nd lvl - 05532 ([id number] ~G) LT - LEFT SIDE LMBB (includes Fluoro) Lumbar/Sacral, single lvl - 66194 ([id number] ~G) Additional Codes: Date of Service (16954) Date of service: 12/12/24 Diagnoses: Lumbosacral spondylosis without myelopathy
[2024-12-12] MEDS: Nerve Block Tray 1 EACH MC (10:29)
[2024-12-12] MEDS: methylPREDNISolone ACETATE 80 MG/ML VIAL IJ (10:30)
[2024-12-12] MEDS: Lidocaine 2% Pres-Free 5 ML VIAL IJ (10:30)
[2024-12-12] MEDS: Omnipaque 240 MG/ML 50 ML BTL IJ (10:30)
== END 2024-12-12 09:20 | disposition home or self-care (01) ==
LOC: PC 09:20
PROVIDERS: PCP Nurse Practitioner Family; Visit Provider Preventive Medicine Occupational Medicine
DX: M47.816 Spondylosis without myelopathy or radiculopathy, lumbar region (principal)
CPT/HCPCS: 64493; 64494; 72100; J1010; Q9967

== ENCOUNTER 2025-02-18 09:18 | Outpatient (CLI) | payer BC, SELFPAY ==
--- NOTE | 2025-02-18 06:00 | DI.RAD_ITS ---
Exam(s) XR PAIN CLINIC SACRIOILIAC 2V EXAM: XR PAIN CLINIC SACRIOILIAC 2V CLINICAL HISTORY: DX: Sacroiliac Dysfunction TECHNIQUE: 2D and realtime digital imaging was performed. CONTRAST MATERIAL: Refer to procedure report. COMPARISON: No exams were available for comparison FINDINGS: Fluoroscopy was provided for Dr. Cronin during the performance of a left sacroiliac joint injection. Please refer to the procedure report for complete details. Ka,r=8.14 mGy IMPRESSION: RADIATION DOSE DELIVERED: 0.0 0.0 0
[2025-02-18 09:12] VITALS: BP 128/83; PULSE 102; RESP 18; TEMP 36.4; O2SAT 98
--- NOTE | 2025-02-18 09:59 | PDOC.PAIN ---
Date of service: 02/18/25 Time of Service: 10:04 Pain Managment Procedure Note Procedure Note Procedure Note: ?Sacroiliac Joint Steroid Injection ? Location: ? ? Left SI joint ? Pre-procedure Diagnosis: Sacroiliitis, not elsewhere classified - M46.1 ? Post-procedure Diagnosis:? The same as above ? Sedation:? NONE ? Medication: Depo-Medrol 40 mg, bupivacaine 0.5% 1 mL, Omnipaque 0.25 mL per joint ? Estimated blood loss:? less than 2 cc ? Surgeon:? Marco Cronin MD ? COMMENT: PT HAD GREATER THAN 50% RELIEF OF HER PAIN FOR GREATER THAN 6 MONTHS FROM PREVIOUS INJECTION ? Procedure Detail:? The procedure and potential risks were explained to the patient and informed written consent was obtained. The patient was escorted to the procedure room and placed in the prone position. Pillows were utilized for proper positioning and comfort. Time out was performed in the procedure room with nursing staff confirming the patient's identity, procedure to be performed, allergies, and any blood thinning or anti-platelet medications. The patient's lumbosacral area was prepped with ChloraPrep and draped in a sterile fashion. Sterile technique was maintained throughout the procedure.? Sterile gloves were used, a face mask was worn, and new single dose vials of all medications were used with the top being swabbed with alcohol and given time to dry prior to withdrawal of medication. Lidocaine 1% was used to anesthetize the skin. With fluoroscopic guidance, a 22-gauge 3.5 spinal needle was advanced into the posteroinferior aspect of the Left SI joint . Confirmation of intra-articular position of the needle tip was obtained with injection of 0.25cc of Omnipaque 240 contrast which showed appropriate spread within the joint.? Following negative aspiration, 40mg of methylprednisolone mixed with 1 mL of bupivacaine 0.5% was injected.? The needle was gently removed. ?The patient tolerated the procedure well and was discharged home with instructions.? Permanent images saved and recorded. Plan:? Follow up prn. PAIN PRE PROCEDURE /10 POST PROCEDURE 0/10 COMMENT: [80] % BETTER AFTER INJECTION Consider left L5 transforaminal steroid injection if that is not effective. Coding Conscious Sedation used for procedure: No CPT Codes: SI Joint Inj; incl Fluoro - [id number] ([id number] ~G) Additional Codes: Date of Service () Diagnoses: Sacroiliitis, not elsewhere classified - M46.1
[2025-02-18 10:07] VITALS: PULSE 92; O2SAT 96
[2025-02-18 10:10] VITALS: PULSE 93; O2SAT 97
[2025-02-18] MEDS: Omnipaque 240 MG/ML 50 ML BTL IJ (10:24)
[2025-02-18] MEDS: methylPREDNISolone ACETATE 40 MG/ML VIAL IJ (10:24)
[2025-02-18] MEDS: Nerve Block Tray 1 EACH MC (10:24)
[2025-02-18] MEDS: Bupivacaine 0.5% Pres-Free 10 ML VIAL IJ (10:24)
== END 2025-02-18 09:19 | disposition home or self-care (01) ==
LOC: PC 09:19
PROVIDERS: PCP Nurse Practitioner Family; Visit Provider Anesthesiology Pain Medicine
DX: M46.1 Sacroiliitis, not elsewhere classified (principal)
CPT/HCPCS: 27096; 72200; J0665; J1010; Q9967